=== PATIENT | female | born 1975 | race Caucasian/White ===

== ENCOUNTER → 2017-02-10 | Outpatient (REF) | payer OTHER ==
[~2017-02-10] MED LIST: ACET50TA PO; FLUT22IN INH; MAG-TAB2 PO; NEXI5GRA PO; PERCOCET PO; PRENTAB7 PO; RANI1TAB6 PO; SING10TA32 PO; TOPR25TA PO
[2017-02-10 12:25] LABS: THYROXINE (T4) 6.8 UG/DL (4.5-12.0); URIC ACID 6.4 MG/DL (2.6-6.0)
[2017-02-13 00:06] LABS: Lyme Disease IgG Ab 18 kDa Ban Absent (.); Lyme Disease IgG Ab 23 kDa Ban Absent (.); Lyme Disease IgG Ab 28 kDa Ban Absent (.); Lyme Disease IgG Ab 30 kDa Ban Absent (.); Lyme Disease IgG Ab 39 kDa Ban Absent (.); Lyme Disease IgG Ab 41 kDa Ban Absent (.); Lyme Disease IgG Ab 45 kDa Ban Absent (.); Lyme Disease IgG Ab 58 kDa Ban Absent (.); Lyme Disease IgG Ab 66 kDa Ban Absent (.); Lyme Disease IgG Ab 93 kDa Ban Absent (.); Lyme Disease IgG West Blot Int Negative (.); Lyme Disease IgG/IgM Antibodie <0.91 ISR (0.00-0.90); Lyme Disease IgM Ab 23 kDa Ban Present (.); Lyme Disease IgM Ab 39 kDa Ban Absent (.); Lyme Disease IgM Ab 41 kDa Ban Absent (.); Lyme Disease IgM Ab Quantitati 1.15 index (0.00-0.79); Lyme Disease IgM West Blot Int Negative (.)
== END ==
LOC: M SFHCCLAY 08:26
PROVIDERS: ATTEND Family Medicine
DX: M54.5 Low back pain (principal); M25.50 Pain in unspecified joint; R53.82 Chronic fatigue, unspecified; M25.78 Osteophyte, vertebrae

== ENCOUNTER → 2017-02-10 | Outpatient (CLI) | payer OTHER ==
--- NOTE | 2017-02-11 00:49 | REP ---
Clinical: Lower back pain. Technique: AP, lateral, bilateral oblique views of the lumbosacral spine. Findings: Normal alignment and lordosis maintained. No acute fracture / compression injury or subluxation. Moderate endplate sclerosis with disc space narrowing and hypertrophic facet changes at the L5-S1 level are appreciated with possible chronic spondylolysis. No evidence for spondylolisthesis. Remainder examination is relatively normal for age. Impression: Moderate degenerative disc osteophyte complex at the L5-S1 level as described above. Signed by Jayce Seymour MD 02/11/2017 12:40 A
== END ==
LOC: M CLY 08:36
PROVIDERS: ATTEND Family Medicine
DX: M54.5 Low back pain (principal)

== ENCOUNTER → 2017-06-27 | Outpatient (CLI) | payer OTHER | LOC: M PAIN 10:30 | PROVIDERS: ATTEND Anesthesiology | DX: M54.5 Low back pain (principal); G89.29 Other chronic pain; M79.1 Myalgia; M47.816 Spondylosis without myelopathy or radiculopathy, lumbar region; M47.817 Spondylosis without myelopathy or radiculopathy, lumbosacral region; J45.909 Unspecified asthma, uncomplicated; Z79.899 Other long term (current) drug therapy ==

== ENCOUNTER → 2018-03-02 | Outpatient (CLI) | payer OTHER | LOC: M RAD 15:11 | DX: K42.9 Umbilical hernia without obstruction or gangrene (principal) | CPT/HCPCS: 74176 ==

== ENCOUNTER 2018-08-20 15:04 | Emergency (ER) | payer OTHER ==
[~2018-08-20 15:04] MED LIST changes: -ACET50TA PO; +MAPA500T2 PO; -TOPR25TA PO; +TOPR25TA13 PO
[2018-08-20 15:54] LABS: BASO % 0.3 % (0.0-1.0); EOS % 0.2 % (0.0-3.0); HEMATOCRIT 41.1 % (36.0-47.0); HEMOGLOBIN 13.9 g/dl (12.0-15.5); LYMPH # 0.5 10^3/uL (1.5-4.5); LYMPH % 8.2 % (24.0-44.0); MEAN CORPUSCULAR HEMOGLOBIN 29.2 pg (27.0-33.0); MEAN CORPUSCULAR HGB CONC 33.8 g/dl (32.0-36.5); MEAN CORPUSCULAR VOLUME 86.3 fl (80.0-96.0); MONO # 0.3 10^3/uL (0.0-0.8); MONO % 4.6 % (0.0-5.0); NEUTROPHILS # 5.5 10^3/uL (1.8-7.7); NEUTROPHILS % 86.2 % (36.0-66.0); PLATELET COUNT, AUTOMATED 155 10^3/uL (150-450); RED BLOOD COUNT 4.76 10^6/uL (4.00-5.40); WHITE BLOOD COUNT 6.3 10^3/uL (4.0-10.0)
--- NOTE | 2018-08-20 15:56 | REP ---
Portable chest x-ray: Single view. History: Chest pain. Comparison study: June 11, 2016. Findings: EKG monitoring electrodes overlie the chest. Lungs are well inflated and clear. Pleural angles are sharp. Heart size is normal. Pulmonary vasculature is not increased. No significant bony abnormality is seen. Impression: Negative portable chest x-ray. Electronically Signed by Jai Mora MD 08/20/2018 03:48 P
[2018-08-20] MEDS ORDERED: NS 1,000 ML IV ONE ×2 (16:15→18:00)
[2018-08-20] MEDS ORDERED: ACETAMINOPHEN TAB 650MG DOSE (2X325MG) PO ONE ×2 (16:15→20:15)
[2018-08-20 16:22] LABS: BLOOD UREA NITROGEN 12 MG/DL (7-18); CALCIUM LEVEL 8.8 MG/DL (8.5-10.1); CARBON DIOXIDE LEVEL 24 MEQ/L (21-32); CHLORIDE LEVEL 104 MEQ/L (98-107); CK-MB VALUE MASS < 1.0 NG/ML (<3.6); CPK CREATINE PHOSPHOKINASE 89 U/L (26-192); CREATININE FOR GFR 1.07 MG/DL (0.55-1.30); GLOMERULAR FILTRATION RATE > 60.0 (>58); GLUCOSE, FASTING 102 MG/DL (70-100); MB/CK RELATIVE INDEX 1.12 (< OR =4); POTASSIUM SERUM 3.8 MEQ/L (3.5-5.1); SODIUM LEVEL 137 MEQ/L (136-145); TROPONIN I < 0.02 NG/ML (< 0.10)
[2018-08-20 16:25] LABS: INR 0.98; PROTHROMBIN TIME 13.1 SECONDS (12.1-14.4)
[2018-08-20 16:26] LABS: PARTIAL THROMBOPLASTIN TIME 24.5 SECONDS (25.4-37.6)
[2018-08-20 16:44] LABS: ALBUMIN 4.1 GM/DL (3.2-5.2); ALT/SGPT 45 U/L (12-78); BILIRUBIN,DIRECT 0.2 MG/DL (0.0-0.2); BILIRUBIN,TOTAL 0.5 MG/DL (0.2-1.0); FREE T4 0.97 NG/DL (0.76-1.46); LIPASE 77 U/L (73-393); MAGNESIUM LEVEL 1.5 MG/DL (1.8-2.4); PHOSPHORUS LEVEL 1.2 MG/DL (2.5-4.9); TOTAL PROTEIN 7.5 GM/DL (6.4-8.2)
[2018-08-20 16:48] LABS: MONO SCRN NEGATIVE (NEGATIVE)
[2018-08-20] MEDS ORDERED: ISOVUE-370 76% 100ML VIAL (Q9967) As Ordered ONE (16:52)
[2018-08-20] MEDS ORDERED: MAGNESIUM OXIDE 400 MG TAB (MAG-OX) PO ONE (17:00)
[2018-08-20] MEDS ORDERED: NEUTRA-PHOS 1.25 GM PACKET PO ONE (17:00)
[2018-08-20] MEDS ORDERED: IBUPROFEN 600 MG TAB PO ONE (18:00)
--- NOTE | 2018-08-20 18:07 | REP ---
CT ANGIO CHEST: HISTORY: Pleuritic chest pain. CONTRAST: Isovue-370 100 mL. There are no filling defects in the main, right and left pulmonary arteries or their branches. The lungs are clear. There is no pleural effusion. The heart is normal in size. There is no mediastinal mass. There is no aneurysm. The patient is status-post cholecystectomy. IMPRESSION:1. There is no pulmonary embolism. 2. The patient is status-post cholecystectomy. Electronically Signed by Donn Red MD 08/20/2018 06:28 P
--- NOTE | 2018-08-20 18:15 | REP ---
CT ABDOMEN AND PELVIS WITH CONTRAST: HISTORY: Fever. CONTRAST: Isovue-370 100 mL. COMPARISON: 03/02/2018. The patient is status-post cholecystectomy. The liver, pancreas, spleen, adrenal glands and kidneys are normal in appearance. There is no mass, adenopathy, or free fluid. A small 1 cm fat containing periumbilical hernia is present. The visualized lungs are clear. The urinary bladder and uterus are normal in appearance. Degenerative changes is present in the lumbar spine. There are 4 mm of grade 1 spondylolisthesis of L5 on S1 with associated L5 pars defects. IMPRESSION:The patient is status-post cholecystectomy. Electronically Signed by Donn Red MD 08/20/2018 06:30 P
[2018-08-20] MEDS ORDERED: AUGMENTIN 875 MG TAB PO ONE (18:30)
[2018-08-20] MEDS ORDERED: NS 1,000 ML IV SCH (20:11)
[2018-08-20 21:21] LABS: CK-MB VALUE MASS < 1.0 NG/ML (<3.6); CPK CREATINE PHOSPHOKINASE 77 U/L (26-192); TROPONIN I < 0.02 NG/ML (< 0.10)
[2018-08-20] MEDS ORDERED: AUGM875T28 PO (21:34)
[2018-08-20 21:40] VITALS: BP 90/56
--- NOTE | 2018-08-21 08:40 | ECGEPIP ---
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
== END 2018-08-20 21:53 | disposition home or self-care (01) ==
LOC: M ED 15:04
DX: F50.9 Eating disorder, unspecified (principal); R00.2 Palpitations; H66.92 Otitis media, unspecified, left ear; R00.0 Tachycardia, unspecified; R94.31 Abnormal electrocardiogram [ECG] [EKG]; J45.909 Unspecified asthma, uncomplicated; I47.1 Supraventricular tachycardia; Z79.899 Other long term (current) drug therapy
CPT/HCPCS: 71045; 71275; 74177; 80048; 80076; 81001; 82550; 82553; 83690; 83735; 84100; 84439; 84443; 85025; 85610; 85730; 86308; 87040; 87077; 87186; 87486; 87581; 87633; 87798; 87880; 93005; 93041; 94760; 96360; 96361; 99285; Q9967

== ENCOUNTER → 2018-11-23 | Outpatient (REF) | payer OTHER ==
[~2018-11-23] MED LIST changes: +AUGM875T28 PO; +TOPR25TA PO; -TOPR25TA13 PO
[2018-11-23 16:50] LABS: BASO % 0.7 % (0.0-1.0); EOS # 0.1 10^3/uL (0.0-0.50); EOS % 1.7 % (0.0-3.0); HEMATOCRIT 40.5 % (36.0-47.0); HEMOGLOBIN 13.5 g/dl (12.0-15.5); LYMPH # 2.2 10^3/uL (1.5-4.5); LYMPH % 48.6 % (24.0-44.0); MEAN CORPUSCULAR HGB CONC 33.3 g/dl (32.0-36.5); MEAN CORPUSCULAR VOLUME 87.1 fl (80.0-96.0); MONO # 0.3 10^3/uL (0.0-0.8); MONO % 7.4 % (0.0-5.0); NEUTROPHILS # 1.9 10^3/uL (1.8-7.7); NEUTROPHILS % 41.4 % (36.0-66.0); PLATELET COUNT, AUTOMATED 198 10^3/uL (150-450); RED BLOOD COUNT 4.65 10^6/uL (4.00-5.40); WHITE BLOOD COUNT 4.6 10^3/uL (4.0-10.0)
[2018-11-23 17:12] LABS: ALBUMIN 3.7 GM/DL (3.2-5.2); ALT/SGPT 37 U/L (12-78); BILIRUBIN,TOTAL 0.2 MG/DL (0.2-1.0); BLOOD UREA NITROGEN 9 MG/DL (7-18); C REACTIVE PROTEIN QUANTITATIV 0.37 MG/DL (0.00-0.30); CALCIUM LEVEL 8.9 MG/DL (8.5-10.1); CARBON DIOXIDE LEVEL 26 MEQ/L (21-32); CHLORIDE LEVEL 107 MEQ/L (98-107); GLOMERULAR FILTRATION RATE > 60.0 (>58); GLUCOSE, FASTING 83 MG/DL (70-100); POTASSIUM SERUM 4.4 MEQ/L (3.5-5.1); RHEUMATOID FACTOR QUANT < 10.0 IU/ML (<15.0); SODIUM LEVEL 140 MEQ/L (136-145); TOTAL PROTEIN 7.6 GM/DL (6.4-8.2)
[2018-11-23 18:19] LABS: ERYTHROCYTE SEDIMENTATION RATE 12 mm/hr (0-20)
[2018-11-26 00:06] LABS: ANA (HEP2) Negative (.)
== END ==
LOC: M SFHCCLAY 13:33
PROVIDERS: ATTEND Nurse Practitioner Family
DX: M25.50 Pain in unspecified joint (principal)

== ENCOUNTER 2019-11-06 22:26 | Emergency (ER) | payer OTHER ==
[~2019-11-06] VITALS: Ht 162.6 cm; Wt 90.5 kg
[~2019-11-06 22:26] MED LIST changes: +RANI-397 PO; -RANI1TAB6 PO
[2019-11-06] MEDS ORDERED: NS 1,000 ML IV SCH (22:41)
[2019-11-06] MEDS ORDERED: GI COCKTAIL 50ML BTL(HYOSCYAMINE/MAALOX/LIDOCAINE VISCOUS)(1:3:1) PO ONE (22:45)
[2019-11-06] MEDS ORDERED: ASPIRIN 81 MG CHEW TABLET PO ONE (22:45)
[2019-11-06] MEDS ORDERED: METOPROLOL SUCC (TopROL XL) 50MG **XL** TAB PO ONE (23:00)
[2019-11-06] MEDS ORDERED: ADENOSINE 6MG/2ML INJECTION (J0153) IV STA (23:00)
[2019-11-06 23:10] VITALS: BP 141/82
[2019-11-06 23:11] LABS: BASO % 0.5 % (0.0-1.0); EOS # 0.1 10^3/uL (0.0-0.5); EOS % 1.1 % (0.0-3.0); HEMATOCRIT 38.7 % (36.0-47.0); LYMPH # 1.7 10^3/uL (1.5-5.0); LYMPH % 26.5 % (24.0-44.0); MEAN CORPUSCULAR HEMOGLOBIN 28.8 pg (27.0-33.0); MEAN CORPUSCULAR HGB CONC 33.6 g/dl (32.0-36.5); MEAN CORPUSCULAR VOLUME 85.8 fl (80.0-96.0); MONO # 0.4 10^3/uL (0.0-0.8); MONO % 6.5 % (0.0-5.0); NEUTROPHILS # 4.2 10^3/uL (1.5-8.5); NEUTROPHILS % 65.1 % (36.0-66.0); PLATELET COUNT, AUTOMATED 175 10^3/uL (150-450); RED BLOOD COUNT 4.51 10^6/uL (4.00-5.40); WHITE BLOOD COUNT 6.5 10^3/uL (4.0-10.0)
[2019-11-06 23:22] LABS: INR 0.96; PROTHROMBIN TIME 12.5 SECONDS (11.8-14.0)
[2019-11-06 23:43] LABS: ALBUMIN 3.7 GM/DL (3.2-5.2); ALT/SGPT 56 U/L (12-78); BILIRUBIN,DIRECT < 0.1 MG/DL (0.0-0.2); BILIRUBIN,TOTAL 0.2 MG/DL (0.2-1.0); BLOOD UREA NITROGEN 14 MG/DL (7-18); CALCIUM LEVEL 8.9 MG/DL (8.5-10.1); CARBON DIOXIDE LEVEL 28 MEQ/L (21-32); CHLORIDE LEVEL 106 MEQ/L (98-107); CPK CREATINE PHOSPHOKINASE 143 U/L (26-192); CREATININE FOR GFR 1.14 MG/DL (0.55-1.30); FREE T4 1.01 NG/DL (0.76-1.46); GLOMERULAR FILTRATION RATE 55.4 (>58); GLUCOSE, FASTING 120 MG/DL (70-100); HCG, SERUM QUALITATIVE NEGATIVE (NEGATIVE); POTASSIUM SERUM 3.9 MEQ/L (3.5-5.1); SODIUM LEVEL 140 MEQ/L (136-145); TOTAL PROTEIN 7.3 GM/DL (6.4-8.2); TROPONIN I < 0.02 NG/ML (< 0.10)
[2019-11-07] MEDS ORDERED: ALPRAZolam 0.25 MG TAB PO ONE (00:30)
[2019-11-07 00:40] VITALS: BP 134/81
[2019-11-07] MEDS ORDERED: METO1TAB87 PO (01:19)
--- NOTE | 2019-11-07 09:59 | REP ---
CHEST, SINGLE VIEW: Single view of the chest is performed and compared to a prior study of 08/20/2018. There is linear discoid atelectasis in the anterior lung base. No infiltrate is seen bilaterally. The heart is normal in size and mediastinal silhouette is unremarkable. IMPRESSION: Bibasilar linear discoid atelectasis. Electronically Signed by Jagjit Aleman MD 11/07/2019 09:50 P
--- NOTE | 2019-11-07 10:17 | ECGEPIP ---
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
[2019-11-08] MEDS ORDERED: LOPR1TAB6 PO (12:00)
== END 2019-11-07 02:08 | disposition home or self-care (01) ==
LOC: M ED 22:26
DX: I47.1 Supraventricular tachycardia (principal); J98.11 Atelectasis; I10 Essential (primary) hypertension; K21.9 Gastro-esophageal reflux disease without esophagitis
CPT/HCPCS: 71045; 80048; 80076; 82550; 82553; 84439; 84703; 85025; 85610; 93005; 93041; 94760; 96374; 99285; J0153

== ENCOUNTER 2019-11-08 09:49 | Emergency (ER) | payer OTHER ==
[~2019-11-08] VITALS: Ht 162.6 cm; Wt 90.5 kg
[~2019-11-08 09:49] MED LIST changes: +METO1TAB87 PO
[2019-11-08 10:25] LABS: BASO % 0.8 % (0.0-1.0); EOS # 0.1 10^3/uL (0.0-0.5); EOS % 0.9 % (0.0-3.0); HEMATOCRIT 44.1 % (36.0-47.0); HEMOGLOBIN 14.6 g/dl (12.0-15.5); LYMPH # 1.9 10^3/uL (1.5-5.0); LYMPH % 35.6 % (24.0-44.0); MEAN CORPUSCULAR HEMOGLOBIN 28.7 pg (27.0-33.0); MEAN CORPUSCULAR HGB CONC 33.1 g/dl (32.0-36.5); MEAN CORPUSCULAR VOLUME 86.8 fl (80.0-96.0); MONO # 0.4 10^3/uL (0.0-0.8); MONO % 6.6 % (0.0-5.0); NEUTROPHILS % 55.7 % (36.0-66.0); PLATELET COUNT, AUTOMATED 195 10^3/uL (150-450); RED BLOOD COUNT 5.08 10^6/uL (4.00-5.40); WHITE BLOOD COUNT 5.3 10^3/uL (4.0-10.0)
[2019-11-08 11:13] LABS: BLOOD UREA NITROGEN 11 MG/DL (7-18); CALCIUM LEVEL 9.3 MG/DL (8.5-10.1); CARBON DIOXIDE LEVEL 28 MEQ/L (21-32); CHLORIDE LEVEL 105 MEQ/L (98-107); CK-MB VALUE MASS < 1.0 NG/ML (<3.6); CPK CREATINE PHOSPHOKINASE 100 U/L (26-192); CREATININE FOR GFR 0.94 MG/DL (0.55-1.30); GLOMERULAR FILTRATION RATE > 60.0 (>58); GLUCOSE, FASTING 94 MG/DL (70-100); MAGNESIUM LEVEL 2.1 MG/DL (1.8-2.4); PHOSPHORUS LEVEL 2.6 MG/DL (2.5-4.9); SODIUM LEVEL 137 MEQ/L (136-145); TROPONIN I < 0.02 NG/ML (< 0.10)
[2019-11-08] MEDS ORDERED: LOPR1TAB6 PO (12:00)
[2019-11-08 12:30] VITALS: BP 111/60
--- NOTE | 2019-11-08 13:33 | REP ---
CHEST: Single view. There is no evidence of acute infiltrate. No pleural effusion is seen. The heart is normal in size. The mediastinal silhouette is unremarkable. The visualized osseous structures are intact. IMPRESSION: No acute pulmonary disease. Electronically Signed by Jagjit Aleman MD 11/09/2019 10:05 A
--- NOTE | 2019-11-08 22:14 | ECGEPIP ---
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
== END 2019-11-08 12:28 | disposition home or self-care (01) ==
LOC: M ED 09:49
DX: R00.2 Palpitations (principal); R07.9 Chest pain, unspecified; R10.31 Right lower quadrant pain; Z79.899 Other long term (current) drug therapy

== ENCOUNTER 2019-11-09 22:12 | Emergency (ER) | payer OTHER ==
[~2019-11-09] VITALS: Ht 162.6 cm; Wt 90.5 kg
[~2019-11-09 22:12] MED LIST changes: +LOPR1TAB6 PO
[2019-11-09] MEDS ORDERED: NS 1,000 ML IV ONE (22:45)
[2019-11-09] MEDS ORDERED: ASPIRIN 81 MG CHEW TABLET PO ONE (22:45)
[2019-11-09 23:10] LABS: BASO % 0.6 % (0.0-1.0); EOS % 0.6 % (0.0-3.0); HEMOGLOBIN 13.9 g/dl (12.0-15.5); LYMPH # 1.8 10^3/uL (1.5-5.0); LYMPH % 25.7 % (24.0-44.0); MEAN CORPUSCULAR HEMOGLOBIN 28.4 pg (27.0-33.0); MEAN CORPUSCULAR HGB CONC 33.1 g/dl (32.0-36.5); MEAN CORPUSCULAR VOLUME 85.9 fl (80.0-96.0); MONO # 0.5 10^3/uL (0.0-0.8); MONO % 6.6 % (0.0-5.0); NEUTROPHILS # 4.7 10^3/uL (1.5-8.5); NEUTROPHILS % 66.2 % (36.0-66.0); PLATELET COUNT, AUTOMATED 185 10^3/uL (150-450); RED BLOOD COUNT 4.89 10^6/uL (4.00-5.40)
[2019-11-09 23:45] LABS: BLOOD UREA NITROGEN 13 MG/DL (7-18); CALCIUM LEVEL 10.1 MG/DL (8.5-10.1); CARBON DIOXIDE LEVEL 28 MEQ/L (21-32); CHLORIDE LEVEL 104 MEQ/L (98-107); CK-MB VALUE MASS 2.8 NG/ML (<3.6); CPK CREATINE PHOSPHOKINASE 212 U/L (26-192); CREATININE FOR GFR 0.94 MG/DL (0.55-1.30); GLOMERULAR FILTRATION RATE > 60.0 (>58); GLUCOSE, FASTING 90 MG/DL (70-100); MB/CK RELATIVE INDEX 1.32 (< OR =4); SODIUM LEVEL 138 MEQ/L (136-145); TROPONIN I < 0.02 NG/ML (< 0.10)
[2019-11-10] VITALS: BP 118/65
--- NOTE | 2019-11-10 16:41 | ECGEPIP ---
[facility] - ED Test Date: 2019-11-09 Pat Name: BARRERA SCHULTZ Department: Room: - Gender: Female Therapeutic Support Staff: ITZ : 1975 Requested By: PARRIS CHANG Order Number: [id number] Reading MD: Silvana Munoz Measurements Intervals [place] Rate: 66 P: 41 WY: 167 QRS: 31 QRSD: 102 T: -12 QT: 371 QTc: 391 Interpretive Statements SINUS RHYTHM NONSPECIFIC ST & T-WAVE ABNORMALITY DECREASED RATE 11/08/19 Electronically Signed on 11-10-2019 16:41:29 EDT by Silvana Munoz
== END 2019-11-10 01:05 | disposition home or self-care (01) ==
LOC: EDBD 22:12 → M ED 22:12
DX: R00.2 Palpitations (principal); F41.9 Anxiety disorder, unspecified; Z86.79 Personal history of other diseases of the circulatory system; Z79.899 Other long term (current) drug therapy

== ENCOUNTER → 2019-11-11 | Outpatient (CLI) | payer OTHER ==
[~2019-11-11] MED LIST changes: +METO50TA7 PO; +PANT40TA3 PO; +SERT25TA21 PO; +SUCR1TAB56 PO
== END ==
LOC: M LABSMTC 13:00
PROVIDERS: ATTEND Family Medicine
DX: Z11.59 Encounter for screening for other viral diseases (principal); Z20.828 Contact with and (suspected) exposure to other viral communicable diseases

== ENCOUNTER 2019-11-16 17:25 | Emergency (ER) | payer OTHER ==
[~2019-11-16] VITALS: Ht 162.6 cm; Wt 89.0 kg
[~2019-11-16 17:25] MED LIST changes: -METO50TA7 PO; -PANT40TA3 PO; -SERT25TA21 PO; -SUCR1TAB56 PO
[2019-11-16] MEDS ORDERED: SERT25TA21 PO (17:38)
[2019-11-16] MEDS ORDERED: PANT40TA3 PO (17:38)
[2019-11-16] MEDS ORDERED: METO50TA7 PO (17:38)
[2019-11-16] MEDS ORDERED: SUCR1TAB56 PO (17:38)
[2019-11-16 17:56] LABS: BASO % 0.5 % (0.0-1.0); EOS # 0.1 10^3/uL (0.0-0.5); EOS % 0.9 % (0.0-3.0); HEMATOCRIT 42.3 % (36.0-47.0); LYMPH # 1.7 10^3/uL (1.5-5.0); LYMPH % 31.5 % (24.0-44.0); MEAN CORPUSCULAR HEMOGLOBIN 28.7 pg (27.0-33.0); MEAN CORPUSCULAR HGB CONC 33.1 g/dl (32.0-36.5); MEAN CORPUSCULAR VOLUME 86.7 fl (80.0-96.0); MONO # 0.2 10^3/uL (0.0-0.8); MONO % 4.4 % (0.0-5.0); NEUTROPHILS # 3.4 10^3/uL (1.5-8.5); NEUTROPHILS % 62.3 % (36.0-66.0); PLATELET COUNT, AUTOMATED 193 10^3/uL (150-450); RED BLOOD COUNT 4.88 10^6/uL (4.00-5.40); WHITE BLOOD COUNT 5.5 10^3/uL (4.0-10.0)
[2019-11-16 18:24] LABS: BLOOD UREA NITROGEN 13 MG/DL (7-18); CALCIUM LEVEL 9.4 MG/DL (8.5-10.1); CARBON DIOXIDE LEVEL 27 MEQ/L (21-32); CHLORIDE LEVEL 109 MEQ/L (98-107); CPK CREATINE PHOSPHOKINASE 92 U/L (26-192); CREATININE FOR GFR 0.84 MG/DL (0.55-1.30); GLOMERULAR FILTRATION RATE > 60.0 (>58); GLUCOSE, FASTING 120 MG/DL (70-100); MB/CK RELATIVE INDEX 1.09 (< OR =4); NT-PRO BNP 39 PG/ML (<125); POTASSIUM SERUM 3.8 MEQ/L (3.5-5.1); SODIUM LEVEL 138 MEQ/L (136-145); TROPONIN I < 0.02 NG/ML (< 0.10)
[2019-11-16 18:52] VITALS: BP 129/63
[2019-11-16] MEDS ORDERED: METOPROLOL TART 50 MG TAB PO ONE (19:00)
[2019-11-16] MEDS ORDERED: ISOVUE-370 76% 100ML VIAL As Ordered ONE (21:07)
--- NOTE | 2019-11-16 21:46 | REPVR ---
PROCEDURE INFORMATION: Exam: CT Angiography Chest With Contrast Exam date and time: 11/16/2019 9:16 PM Age: 44 years old Clinical indication: Chest pain; Additional info: Palpitations, neck fullness TECHNIQUE: Imaging protocol: Computed tomographic angiography of the chest with intravenous contrast. 3D rendering: MIP and/or 3D reconstructed images were created by the technologist. Radiation optimization: All CT scans at this facility use at least one of these dose optimization techniques: automated exposure control; mA and/or kV adjustment per patient size (includes targeted exams where dose is matched to clinical indication); or iterative reconstruction. Contrast material: ISO 370; Contrast volume: 100 ml; Contrast route: IV; COMPARISON: CT ANGIO CHEST 08/20/2018 4:52 PM FINDINGS: Pulmonary arteries: No pulmonary emboli. Aorta: Unremarkable. No aortic aneurysm. No aortic dissection. Lungs: No focal lung consolidation. Pleural space: No pleural effusion. Heart: No cardiomegaly or pericardial effusion. Lymph nodes: No mediastinal or hilar lymphadenopathy. Gallbladder and bile ducts: There has been a cholecystectomy without further significant findings in the upper abdomen. Bones/joints: No significant skeletal findings. Soft tissues: Unremarkable. IMPRESSION: No evidence of pulmonary emboli or pneumonia. Electronically signed by: Sarah Bernal On 11/16/2019 21:45:55 PM
--- NOTE | 2019-11-16 21:59 | REPVR ---
PROCEDURE INFORMATION: Exam: CT Neck With Contrast Exam date and time: 11/16/2019 9:16 PM Age: 44 years old Clinical indication: Neck pain; Additional info: Palpitations, neck fullness TECHNIQUE: Imaging protocol: Computed tomography images of the neck with intravenous contrast. Radiation optimization: All CT scans at this facility use at least one of these dose optimization techniques: automated exposure control; mA and/or kV adjustment per patient size (includes targeted exams where dose is matched to clinical indication); or iterative reconstruction. Contrast material: ISO 370; Contrast volume: 100 ml; Contrast route: IV; COMPARISON: No relevant prior studies available. FINDINGS: Nasopharynx: Unremarkable. Oropharynx: The right tonsillar pillar is larger than the left narrowing the right lateral aspect of the oropharynx. Tonsillar crypt calcifications are seen bilaterally. Detail is obscured due to artifact from dental amalgam. There is no obvious inflammation. Hypopharynx: Unremarkable. Larynx: Unremarkable. Normal epiglottis. Retropharyngeal space: Unremarkable. Submandibular/Parotid glands: Normal. Glands are normal in size. Thyroid: No enlarged or calcified nodules-several small low dense areas. Lymph nodes: No lymphadenopathy. Trachea: Visualized trachea is unremarkable. Lungs: Unremarkable as visualized. Bones/joints: Unremarkable. No acute fracture. Soft tissues: Unremarkable. No significant soft tissue swelling. Other findings: No significant skeletal findings. IMPRESSION: The right tonsil appears enlarged in comparison the left without obvious adjacent inflammation however detail is somewhat obscured due to dental amalgam. Consider direct visualization. Electronically signed by: Sarah Bernal On 11/16/2019 21:58:28 PM
[2019-11-16 22:19] VITALS: BP 110/64
--- NOTE | 2019-11-16 23:00 | REP ---
CHEST, SINGLE VIEW: There is no evidence of acute infiltrate. No pleural effusion is seen. The heart is normal in size. The mediastinal silhouette is unremarkable. The visualized osseous structures are intact. IMPRESSION: No acute pulmonary disease. Electronically Signed by Jagjit Aleman MD 11/17/2019 10:52 A
--- NOTE | 2019-11-17 08:59 | ECGEPIP ---
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
== END 2019-11-16 22:34 | disposition home or self-care (01) ==
LOC: M ED 17:25 → EDBD 17:25 → M ED 22:34
DX: I47.9 Paroxysmal tachycardia, unspecified (principal); R00.2 Palpitations; F41.9 Anxiety disorder, unspecified; Z79.899 Other long term (current) drug therapy
CPT/HCPCS: 36415; 70491; 71045; 71275; 80048; 82550; 82553; 83880; 85025; 93005; 93041; 94760; 99285; Q9967

== ENCOUNTER 2019-11-20 10:19 | Emergency (ER) | payer OTHER ==
[~2019-11-20] VITALS: Ht 162.6 cm; Wt 86.8 kg
[~2019-11-20 10:19] MED LIST changes: +METO50TA7 PO; +PANT40TA3 PO; +SERT25TA21 PO; +SUCR1TAB56 PO
[2019-11-20] MEDS ORDERED: TIZA2TA PO (10:47)
[2019-11-20] MEDS ORDERED: LORA0.5T5 PO (10:47)
[2019-11-20] MEDS ORDERED: METOPROLOL 5 MG/5 ML VIAL IV STA (10:53)
[2019-11-20] MEDS ORDERED: METOPROLOL TART 50 MG TAB PO ONE (11:30)
[2019-11-20 11:31] VITALS: BP 119/64
[2019-11-20 11:42] LABS: BASO % 0.9 % (0.0-1.0); EOS % 0.7 % (0.0-3.0); HEMATOCRIT 41.7 % (36.0-47.0); LYMPH # 1.9 10^3/uL (1.5-5.0); MEAN CORPUSCULAR HGB CONC 33.6 g/dl (32.0-36.5); MEAN CORPUSCULAR VOLUME 86.5 fl (80.0-96.0); MONO # 0.3 10^3/uL (0.0-0.8); MONO % 6.9 % (0.0-5.0); NEUTROPHILS # 2.2 10^3/uL (1.5-8.5); NEUTROPHILS % 49.3 % (36.0-66.0); PLATELET COUNT, AUTOMATED 211 10^3/uL (150-450); RED BLOOD COUNT 4.82 10^6/uL (4.00-5.40); WHITE BLOOD COUNT 4.5 10^3/uL (4.0-10.0)
--- NOTE | 2019-11-20 11:53 | REP ---
CHEST PORTABLE: REASON: Chest pain. FINDINGS: The technique utilized in obtaining the radiograph has magnified the cardiac silhouette and accentuated the interstitial markings. The superior mediastinal structures are midline. The cardiac silhouette is unremarkable in size, shape, and position. The diaphragmatic surfaces of the lungs are regular, and the costophrenic angles are clear. The pulmonary allen are clear. The imaged osseous structures are intact. IMPRESSION: There is no acute cardiopulmonary disease. Electronically Signed by Abel Lozano DO 11/20/2019 12:59 P
[2019-11-20 12:04] LABS: BLOOD UREA NITROGEN 10 MG/DL (7-18); CALCIUM LEVEL 9.9 MG/DL (8.5-10.1); CARBON DIOXIDE LEVEL 29 MEQ/L (21-32); CHLORIDE LEVEL 111 MEQ/L (98-107); CK-MB VALUE MASS < 1.0 NG/ML (<3.6); CPK CREATINE PHOSPHOKINASE 89 U/L (26-192); CREATININE FOR GFR 0.92 MG/DL (0.55-1.30); GLOMERULAR FILTRATION RATE > 60.0 (>58); GLUCOSE, FASTING 93 MG/DL (70-100); MB/CK RELATIVE INDEX 1.12 (< OR =4); POTASSIUM SERUM 3.8 MEQ/L (3.5-5.1); SODIUM LEVEL 145 MEQ/L (136-145); TROPONIN I < 0.02 NG/ML (< 0.10)
[2019-11-20 12:30] VITALS: BP 106/63
[2019-11-20] MEDS ORDERED: METO50TA7 PO (12:31)
--- NOTE | 2019-11-21 11:16 | ECGEPIP ---
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
--- NOTE | 2019-11-22 16:39 | ECGEPIP ---
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
== END 2019-11-20 12:47 | disposition home or self-care (01) ==
LOC: M ED 10:19 → EDBD 10:19 → M ED 12:47
DX: I47.1 Supraventricular tachycardia (principal); J45.909 Unspecified asthma, uncomplicated; Z79.899 Other long term (current) drug therapy

== ENCOUNTER 2019-11-23 09:26 | Emergency (ER) | payer OTHER ==
[~2019-11-23 09:26] MED LIST changes: -AMOX/K; -AMOX875T; -AMOX875T2 PO; -FAMO40TA3 PO; -FLUC150T; -IBUP-1022; -IBUP200C33 PO; -LORA-674 PO; -MECL-86 PO; -OFLOSO AD; -OMEP40CA97 PO; -PANT40TA29 PO; +PANT40TA3 PO; -holter monitor
[2019-11-23 09:59] LABS: BASO % 0.6 % (0.0-1.0); EOS % 0.8 % (0.0-3.0); HEMATOCRIT 41.4 % (36.0-47.0); HEMOGLOBIN 13.8 g/dl (12.0-15.5); LYMPH # 1.4 10^3/uL (1.5-5.0); LYMPH % 28.7 % (24.0-44.0); MEAN CORPUSCULAR HEMOGLOBIN 28.8 pg (27.0-33.0); MEAN CORPUSCULAR HGB CONC 33.3 g/dl (32.0-36.5); MEAN CORPUSCULAR VOLUME 86.4 fl (80.0-96.0); MONO # 0.2 10^3/uL (0.0-0.8); MONO % 4.7 % (0.0-5.0); NEUTROPHILS # 3.2 10^3/uL (1.5-8.5); NEUTROPHILS % 64.8 % (36.0-66.0); PLATELET COUNT, AUTOMATED 200 10^3/uL (150-450); RED BLOOD COUNT 4.79 10^6/uL (4.00-5.40); WHITE BLOOD COUNT 4.9 10^3/uL (4.0-10.0)
[2019-11-23] MEDS ORDERED: NS 500 ML IV ONE (10:00)
--- NOTE | 2019-11-23 10:27 | REP ---
Head CT without contrast: History: Dizziness. Comparison study: No comparison head CT study. CT findings: Bone window settings demonstrate an intact bony calvarium. There is no evidence of skull fracture or incidental bony calvarial lesion. The visualized paranasal sinuses appear clear. No intraorbital abnormality is seen. On soft tissue window setting images; the lateral, third, and fourth ventricles are normal in size and position. Aleman-white differentiation pattern is normal above and below the tentorium. There are is no evidence of intracranial hemorrhage. No mass, edema, infarction, or midline shift is seen. No extra-axial fluid collection is appreciated. Impression: Negative noncontrast head CT. Electronically Signed by Jai Mora MD 11/23/2019 10:18 A
[2019-11-23 10:29] LABS: BLOOD UREA NITROGEN 10 MG/DL (7-18); CALCIUM LEVEL 9.2 MG/DL (8.5-10.1); CARBON DIOXIDE LEVEL 28 MEQ/L (21-32); CHLORIDE LEVEL 105 MEQ/L (98-107); CK-MB VALUE MASS 3.3 NG/ML (<3.6); CPK CREATINE PHOSPHOKINASE 92 U/L (26-192); CREATININE FOR GFR 0.88 MG/DL (0.55-1.30); GLOMERULAR FILTRATION RATE > 60.0 (>58); GLUCOSE, FASTING 96 MG/DL (70-100); MAGNESIUM LEVEL 2.1 MG/DL (1.8-2.4); MB/CK RELATIVE INDEX 3.59 (< OR =4); SODIUM LEVEL 139 MEQ/L (136-145); TROPONIN I 0.72 NG/ML (< 0.10)
--- NOTE | 2019-11-23 10:38 | REP ---
CHEST, SINGLE VIEW: There is no evidence of acute infiltrate. No pleural effusion is seen. The heart is normal in size. The mediastinal silhouette is unremarkable. The visualized osseous structures are intact. IMPRESSION: No acute pulmonary disease. Electronically Signed by Jagjit Aleman MD 11/23/2019 10:44 A
--- NOTE | 2019-11-23 12:49 | REP ---
CT CHEST WITHOUT IV CONTRAST: CT chest performed without IV contrast. Sagittal and coronal reconstruction images are performed. COMPARISON: 11/16/2019. Linear fibrotic scarring is seen in the left lower lobe. There is no acute infiltrate or pulmonary edema. There is no evidence of axillary or mediastinal adenopathy. The heart is normal in size. There is no pleural or pericardial effusion. Thoracic aorta is normal in caliber with no aneurysm. The visualized upper abdominal structures demonstrate evidence of prior cholecystectomy. The visualized osseous structures are intact. IMPRESSION: Essentially negative noncontrast CT of the chest. Mild scarring left lower lobe. Electronically Signed by Jagjit Aleman MD 11/23/2019 01:51 P
[2019-11-23 13:52] LABS: CK-MB VALUE MASS 2.8 NG/ML (<3.6); MB/CK RELATIVE INDEX 3.46 (< OR =4); TROPONIN I 0.64 NG/ML (< 0.10)
[2019-11-23] MEDS ORDERED: holter monitor (14:35)
[2019-11-23 16:01] LABS: CK-MB VALUE MASS 2.5 NG/ML (<3.6); MB/CK RELATIVE INDEX 3.33 (< OR =4); TROPONIN I 0.64 NG/ML (< 0.10)
[2019-11-23 16:28] VITALS: BP 112/62
--- NOTE | 2019-11-24 08:24 | ECGEPIP ---
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
== END 2019-11-23 16:29 | disposition home or self-care (01) ==
LOC: M ED 09:26
DX: R42 Dizziness and giddiness (principal); R20.2 Paresthesia of skin; Z98.890 Other specified postprocedural states; I47.2 Ventricular tachycardia; J45.909 Unspecified asthma, uncomplicated; F41.1 Generalized anxiety disorder; Z79.899 Other long term (current) drug therapy

== ENCOUNTER → 2019-11-23 | Outpatient (CLI) | payer OTHER ==
[~2019-11-23] MED LIST changes: +AMOX/K; +AMOX875T; +AMOX875T2 PO; +FAMO40TA3 PO; +FLUC150T; +IBUP-1022; +IBUP200C33 PO; +LORA-674 PO; +LORA0.5T5 PO; +MECL-86 PO; +OFLOSO AD; +OMEP40CA97 PO; +PANT40TA29 PO; -PANT40TA3 PO; +TIZA2TA PO; +holter monitor
--- NOTE | 2019-11-26 20:11 | HOLTMON ---
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 23 hours and 47 minutes were usable for analysis. Baseline mechanism was SR with normal AV conduction and narrow QRS complex. Minimum HR was 50 bpm, average HR 76 bpm and maximum HR 144 bpm. There were no pauses and no atrial fibrillation. 2 isolated PVC's and 3 isolated PAC's were present. Patient reported 4 episodes of dizziness, palpitations and chest pain. All episodes corresponded to SR without ectopy. Overall normal Holter monitor, no correlation of symptoms with arrhythmias. Electronically Signed on 11-26-2019 20:10:28 EDT by Martha Vargas
== END ==
LOC: M EKG 16:08
PROVIDERS: ATTEND Emergency Medicine
DX: R00.2 Palpitations (principal)

== ENCOUNTER → 2019-12-17 | Outpatient (CLI) | payer OTHER ==
[~2019-12-17] MED LIST changes: +AMOX/K; +AMOX875T2 PO; +E-Z-GAS II EFFERVESCENT PACKET (SODIUM BICARB./CITRIC ACID/SIMETHICONE) As Ordered ONE; +E-Z-HD 98% w/w 340GM SUSP BTL As Ordered ONE; +E-Z-PAQUE 96% w/w SUSP 176GM BTL As Ordered ONE; +MECL-86 PO; +OFLOSO AD; +holter monitor
--- NOTE | 2019-12-20 13:38 | REP ---
Upper GI air contrast The procedure was performed under the direct supervision of Dr. Aleman. The images were reviewed with Dr. Aleman The clinical quality assurance specialist film shows no organomegaly or pathological masses. The intestinal gas pattern is non-specific. There are surgical clips noted in the right upper quadrant as well as a single surgical clip in the right mid abdomen. Liquid barium and gas producing crystals were given in the erect position as well as liquid barium in the prone oblique position in order to perform a double contrast upper GI examination. The oral and pharyngeal stages of deglutition are unremarkable. Esophageal transport is prompt and efficient and there is no esophagitis, stricture, mucosal ring or hiatal hernia. Gastroesophageal reflux is not demonstrated on this examination. The stomach escobedo are normally outlined . The rugal folds are smooth and regular. There is no gastritis neoplasm or ulcer disease. The duodenal escobedo are normally outlined . The mucosal folds are smooth and regular. There is no duodenitis pancreatitis peptic ulcer disease or neoplasm. The visualized portion of the proximal small bowel appears normal in course and caliber. Impression: Essentially unremarkable double contrast upper GI examination. 1.6 minutes of fluoro time was utilized for this procedure. Electronically Signed by ELICIA Koch 12/17/2019 03:26 P Electronically Signed by Jagjit Aleman MD 12/20/2019 01:30 P
== END ==
LOC: M RAD 08:10
PROVIDERS: ATTEND Nurse Practitioner Family
DX: R10.13 Epigastric pain (principal)

== ENCOUNTER 2019-12-18 10:56 | Emergency (ER) | payer OTHER ==
[~2019-12-18] VITALS: Ht 162.6 cm; Wt 86.4 kg
[~2019-12-18 10:56] MED LIST changes: -AMOX/K; -AMOX875T2 PO; -E-Z-GAS II EFFERVESCENT PACKET (SODIUM BICARB./CITRIC ACID/SIMETHICONE) As Ordered ONE; -E-Z-HD 98% w/w 340GM SUSP BTL As Ordered ONE; -E-Z-PAQUE 96% w/w SUSP 176GM BTL As Ordered ONE; -MECL-86 PO; -OFLOSO AD; +PANT40TA29 PO; -PANT40TA3 PO
[2019-12-18] MEDS ORDERED: AMOX/K (11:13)
[2019-12-18] MEDS ORDERED: OFLOSO AD (11:13)
[2019-12-18] MEDS ORDERED: MECL-86 PO (11:13)
[2019-12-18] MEDS ORDERED: ISOVUE-370 76% 100ML VIAL As Ordered ONE (11:29)
[2019-12-18 11:54] LABS: BASO % 0.5 % (0.0-1.0); EOS % 0.5 % (0.0-3.0); HEMATOCRIT 39.5 % (36.0-47.0); HEMOGLOBIN 13.1 g/dl (12.0-15.5); LYMPH % 24.2 % (24.0-44.0); MEAN CORPUSCULAR HEMOGLOBIN 29.1 pg (27.0-33.0); MEAN CORPUSCULAR HGB CONC 33.2 g/dl (32.0-36.5); MEAN CORPUSCULAR VOLUME 87.8 fl (80.0-96.0); MONO # 0.2 10^3/uL (0.0-0.8); MONO % 4.9 % (0.0-5.0); NEUTROPHILS # 2.9 10^3/uL (1.5-8.5); NEUTROPHILS % 69.7 % (36.0-66.0); PLATELET COUNT, AUTOMATED 183 10^3/uL (150-450); WHITE BLOOD COUNT 4.1 10^3/uL (4.0-10.0)
[2019-12-18 12:06] LABS: INR 0.97; PARTIAL THROMBOPLASTIN TIME 25.8 SECONDS (25.0-38.4); PROTHROMBIN TIME 12.6 SECONDS (11.8-14.0)
[2019-12-18 12:21] LABS: CK-MB VALUE MASS < 1.0 NG/ML (<3.6); CPK CREATINE PHOSPHOKINASE 103 U/L (26-192); MB/CK RELATIVE INDEX 0.97 (< OR =4); TROPONIN I < 0.02 NG/ML (< 0.10)
[2019-12-18] MEDS ORDERED: LORazepam 1 MG TAB PO STA (13:53)
--- NOTE | 2019-12-18 15:10 | REPVR ---
PROCEDURE INFORMATION: Exam: MR Head Without Contrast Exam date and time: 12/18/2019 2:50 PM Age: 44 years old Clinical indication: Numbness / parasthesia; Patient HX: Left sided facial numbness and parestheias; Additional info: Left sided paresthesias TECHNIQUE: Imaging protocol: MR of the head without contrast. COMPARISON: CT Head without contrast 12/18/2019 11:42 AM FINDINGS: Brain: There is a tiny focus of high signal within the anterior right medulla/cervical cord on the diffusion sequence. This may be artifact. Alternatively, this could represent a tiny infarct associated with the vertebrobasilar system. Ventricles: Normal. No ventriculomegaly. Bones/joints: Unremarkable. Sinuses: Normal as visualized. No acute sinusitis. Mastoid air cells: Normal as visualized. No mastoid effusion. Orbits: Unremarkable. Soft tissues: Unremarkable. IMPRESSION: There is a tiny focus of high signal within the anterior right medulla/cervical cord on the diffusion sequence. This may be artifact. Alternatively, this could represent a tiny infarct associated with the vertebrobasilar system. If this possibility corresponds with patient's clinical symptoms, follow-up CT or MR angiography would be recommended. Electronically signed by: Joni Puri On 12/18/2019 15:10:24 PM
[2019-12-18] MEDS ORDERED: ACETAMINOPHEN TAB 650MG DOSE (2X325MG) PO ONE (16:00)
[2019-12-18] MEDS ORDERED: PROHANCE 279.3MG/ML 5ML VIAL As Ordered ONE (16:47)
[2019-12-18] MEDS ORDERED: PROHANCE 279.3MG/ML 15ML VIAL As Ordered ONE (16:47)
--- NOTE | 2019-12-18 17:33 | REPVR ---
PROCEDURE INFORMATION: Exam: MR Cervical Spine Without and With Contrast Exam date and time: 12/18/2019 4:46 PM Age: 44 years old Clinical indication: Disturbance of skin sensation; Paresthesia of skin; Patient HX: Left sided paresthesia; Additional info: Per Dr wan TECHNIQUE: Imaging protocol: Multiplanar magnetic resonance images of the cervical spine without and with intravenous contrast. Contrast material: PROHANCE; Contrast volume: 17 ml; Contrast route: IV; COMPARISON: CT ANGIO NECK 12/18/2019 11:42 AM FINDINGS: Vertebrae: There is no fracture. Vertebral alignment is normal. Stir images demonstrate no evidence of marrow edema or marrow infiltrating lesion. There is no bone marrow enhancement. Spinal cord: The cervical spinal cord and cervical medullary junction are normal. No signal abnormality or abnormal enhancement. No cord compression. C2-C3: No significant disc disease. No significant spinal stenosis. C3-C4: No significant disc disease. No significant spinal stenosis. C4-C5: Mild disc bulge. No central or foraminal stenosis. C5-C6: Minimal spondylosis and mild disc bulge. No central or foraminal stenosis. C6-C7: Hyperintense signal in the posterior annulus indicating an annular fissure. There is a central disc herniation with cephalad extrusion. Anterior to posterior diameter is 3 mm. The disc extrudes the 3 mm self [place]. The thecal sac is mildly indented in the midline. No central or foraminal stenosis. C7-T1: No significant disc disease. No significant spinal stenosis. Vertebral arteries: Expected flow voids in the vertebral arteries. Soft tissues: There is no paraspinous or intraspinal mass, hemorrhage, fluid collection or abnormal enhancement. IMPRESSION: 1. No spinal cord abnormality . 2. C6-C7: Annular fissure and small central disc extrusion. Electronically signed by: Silvano Owen On 12/18/2019 17:33:10 PM
--- NOTE | 2019-12-18 17:46 | REPVR ---
PROCEDURE INFORMATION: Exam: MR Head With Contrast Exam date and time: 12/18/2019 4:46 PM Age: 44 years old Clinical indication: Numbness / parasthesia; Patient HX: Please compare to earlier non contrast brain. Left sided paresthesia. ; Additional info: Per neuro TECHNIQUE: Imaging protocol: MR of the head with intravenous contrast. This is Limited scan consisting of thin slice FLAIR sagittal, DWI, ADC and multiplanar postcontrast T1 weighted images. 3D rendering: MIP and/or 3D reconstructed images were created by the technologist. Contrast material: PROHANCE; Contrast volume: 17 ml; Contrast route: IV; COMPARISON: MRI-Brain without Contrast 12/18/2019 2:30 PM FINDINGS: Brain: There are a few punctate hyperintense foci in the subcortical white matter on the thin slice FLAIR sagittal images. No hyperintense foci in the periventricular white matter. No definite abnormality on DWI. The punctate right anterior medullary hyperintense focus on the prior scan on DWI is likely artifactual. There are no abnormalities on corresponding ADC, FLAIR or postcontrast images. There is no abnormal enhancement. No evidence of infarct. No mass. No hemorrhage or extra-axial collection. Ventricles: There is no hydrocephalus. Bones/joints: Unremarkable. Sinuses: Normal as visualized. No acute sinusitis. Mastoid air cells: Normal as visualized. No mastoid effusion. Orbits: Unremarkable. Soft tissues: Unremarkable. IMPRESSION: 1. There are a few punctate hyperintense foci in the subcortical white matter. These could represent minimal foci of microvascular or demyelinating disease. Most often such minimal foci are idiopathic with no clinical correlate. 2. No enhancing lesion. Electronically signed by: Sivlano Owen On 12/18/2019 17:46:21 PM
[2019-12-18] MEDS ORDERED: AMOX875T2 PO (17:54)
[2019-12-18 19:00] VITALS: BP 123/60
--- NOTE | 2019-12-18 19:19 | ECGEPIP ---
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
--- NOTE | 2019-12-19 06:44 | ED PDOC ---
Post-Departure Follow-Up esteban phelan and dr fofana faxed formal report of MRI brain and c spine w and wout contrast for fu Eusebia Giles MD Dec 19, 2019 06:44
--- NOTE | 2019-12-20 10:30 | REP ---
CHEST PORTABLE: REASON FOR EXAM: Stoke-like symptoms. COMPARISON: Multiple, the latest 11/23/2019. FINDINGS: The technique utilized in obtaining the radiograph has magnified the cardiac silhouette and accentuated the interstitial markings. The superior mediastinal structures are midline. The cardiac silhouette is unremarkable in size, shape, and position. The diaphragmatic surfaces of the lungs are regular, and the costophrenic angles are clear. The pulmonary allen are clear. The imaged osseous structures are intact. IMPRESSION: There is no acute cardiopulmonary disease. Preliminary report given by Dr. Seymour. Electronically Signed by Abel Lozano DO 12/20/2019 10:58 A
--- NOTE | 2019-12-20 23:15 | REP ---
CT BRAIN, CTA INTRA- AND EXTRACRANIAL CIRCULATION, 12/18/2019: INDICATION: Altered mental status. Headache. TECHNIQUE: Unenhanced axial CT images of the brain were obtained from skull base to vertex. In addition, CT angiography was performed following IV iodinated contrast with coronal and sagittal reconstructions performed. COMPARISONS: CT brain is compared to 11/23/2019. FINDINGS: CT brain: There is no acute intracranial hemorrhage, acute cortical infarction, hydrocephalus, intracranial mass effect, or additional acute abnormalities. The paranasal sinuses and mastoid air cells are essentially clear. Intracranial CTA: There is no intracranial aneurysm, significantly vessel stenosis, AVN, or additional acute intracranial vascular abnormalities. Although not tailored for this evaluation, no intracranial venous/dural venous sinuses abnormalities are detected. Extracranial CTA: There is no hemodynamically significant extracranial ICA stenosis by NASCET criteria. The great vessels originate in expected anatomic fashion from the aortic arch. No radiopaque atherosclerotic disease is present. There is no evidence of vessel dissection. IMPRESSION: Unremarkable head CT. Unremarkable intra- and extracranial CTAs. Electronically Signed by Desean Poole DO 12/21/2019 03:09 P
== END 2019-12-18 19:13 | disposition home or self-care (01) ==
LOC: M ED 10:56
DX: G43.109 Migraine with aura, not intractable, without status migrainosus (principal); Z86.79 Personal history of other diseases of the circulatory system; M50.80 Other cervical disc disorders, unspecified cervical region; M50.20 Other cervical disc displacement, unspecified cervical region; G95.9 Disease of spinal cord, unspecified; Z79.899 Other long term (current) drug therapy
CPT/HCPCS: 70450; 70496; 70498; 70551; 70552; 71045; 72156; 80047; 82550; 82553; 85025; 85610; 85730; 86850; 86900; 86901; 93005; 93041; 94760; 99285; A9576; Q9967

== ENCOUNTER → 2019-12-20 | Outpatient (REF) | payer OTHER ==
[~2019-12-20] MED LIST changes: +AMOX/K; +AMOX875T; +AMOX875T2 PO; +FLUC150T; +IBUP-1022; +MECL-86 PO; +OFLOSO AD; +OMEP40CA97 PO; -PANT40TA29 PO; +PANT40TA3 PO
[2019-12-22 18:07] LABS: IgG P18 AB Absent (.); IgG P23 AB Absent (.); IgG P28 AB Absent (.); IgG P30 AB Absent (.); IgG P39 AB Absent (.); IgG P41 AB Absent (.); IgG P45 AB Absent (.); IgG P66 AB Absent (.); IgG P93 AB Absent (.); IgM P23 AB Present (.); IgM P39 AB Absent (.); IgM P41 AB Absent (.); LYME IgG WB INTERPRETATION Negative (.); LYME IgM WB INTERPRETATION Negative (.)
== END ==
LOC: M SFHCCLAY 14:29
PROVIDERS: ATTEND Nurse Practitioner Family
DX: G44.029 Chronic cluster headache, not intractable (principal); R19.4 Change in bowel habit

== ENCOUNTER → 2019-12-23 | Outpatient (CLI) | payer OTHER ==
--- NOTE | 2019-12-23 16:57 | REP ---
REASON: Pelvic fullness/pain. Transvesical and transvaginal imaging was obtained. Uterus measures 10.7 x 4 x 5.8 cm. The parenchymal echo pattern is within normal limits. The endometrial echocomplex is smooth and unremarkable appearing measuring 7 mm in thickness. The right ovary measures 3.1 x 1.6 x 1.4 cm and the left ovary measures 3.4 x 1.7 x 1.5 cm. Both ovaries are within normal limits. The left ovarian RI is 0.36. The right ovarian RI is 0.71. Incidental note is made of a nabothian cyst. Urinary bladder measures 12 x 8 x 8 cm. IMPRESSION: Pelvic ultrasonography is within normal limits. Electronically Signed by Abel Lozano DO 12/23/2019 05:08 P
== END ==
LOC: M LRY 09:49
PROVIDERS: ATTEND Nurse Practitioner Family
DX: R19.00 Intra-abdominal and pelvic swelling, mass and lump, unspecified site (principal); N88.8 Other specified noninflammatory disorders of cervix uteri

== ENCOUNTER 2019-12-27 11:37 | Emergency (ER) | payer OTHER ==
[~2019-12-27] VITALS: Ht 162.6 cm; Wt 85.7 kg
[~2019-12-27 11:37] MED LIST changes: -AMOX875T; -FLUC150T; -IBUP-1022; -OMEP40CA97 PO
[2019-12-27] MEDS ORDERED: IBUP-1022 (11:45)
[2019-12-27] MEDS ORDERED: FLUC150T (11:45)
[2019-12-27] MEDS ORDERED: AMOX875T (11:45)
[2019-12-27 12:27] LABS: BASO % 0.7 % (0.0-1.0); EOS % 0.5 % (0.0-3.0); HEMATOCRIT 42.2 % (36.0-47.0); HEMOGLOBIN 14.3 g/dl (12.0-15.5); LYMPH # 1.2 10^3/uL (1.5-5.0); LYMPH % 30.1 % (24.0-44.0); MEAN CORPUSCULAR HEMOGLOBIN 29.7 pg (27.0-33.0); MEAN CORPUSCULAR HGB CONC 33.9 g/dl (32.0-36.5); MEAN CORPUSCULAR VOLUME 87.7 fl (80.0-96.0); MONO # 0.3 10^3/uL (0.0-0.8); MONO % 6.8 % (0.0-5.0); NEUTROPHILS # 2.5 10^3/uL (1.5-8.5); NEUTROPHILS % 61.7 % (36.0-66.0); PLATELET COUNT, AUTOMATED 199 10^3/uL (150-450); RED BLOOD COUNT 4.81 10^6/uL (4.00-5.40); WHITE BLOOD COUNT 4.1 10^3/uL (4.0-10.0)
[2019-12-27 12:58] LABS: HCG, SERUM QUALITATIVE NEGATIVE (NEGATIVE)
[2019-12-27 13:00] LABS: ALBUMIN 4.2 GM/DL (3.2-5.2); ALT/SGPT 42 U/L (12-78); BILIRUBIN,DIRECT < 0.1 MG/DL (0.0-0.2); BILIRUBIN,TOTAL 0.3 MG/DL (0.2-1.0); BLOOD UREA NITROGEN 12 MG/DL (7-18); CARBON DIOXIDE LEVEL 27 MEQ/L (21-32); CHLORIDE LEVEL 104 MEQ/L (98-107); CREATININE FOR GFR 0.84 MG/DL (0.55-1.30); GLOMERULAR FILTRATION RATE > 60.0 (>58); GLUCOSE, FASTING 85 MG/DL (70-100); LIPASE 65 U/L (73-393); POTASSIUM SERUM 4.3 MEQ/L (3.5-5.1); SODIUM LEVEL 138 MEQ/L (136-145); TOTAL PROTEIN 8.2 GM/DL (6.4-8.2)
[2019-12-27 14:41] LABS: CK-MB VALUE MASS < 1.0 NG/ML (<3.6); CPK CREATINE PHOSPHOKINASE 77 U/L (26-192); TROPONIN I < 0.02 NG/ML (< 0.10)
--- NOTE | 2019-12-27 14:44 | REP ---
Chest x-ray: Two views. History: Chest discomfort. Left scapular pain. . Comparison study: December 18, 2019 . Findings: The lungs are well inflated and free of infiltrate. The pleural angles are sharp. The heart size is normal. Pulmonary vasculature is not increased. No significant bony abnormality is seen. Impression: Negative chest x-ray. Electronically Signed by Jai Mora MD 12/27/2019 02:36 P
[2019-12-27] MEDS ORDERED: GI COCKTAIL 50ML BTL(HYOSCYAMINE/MAALOX/LIDOCAINE VISCOUS)(1:3:1) PO ONE (15:00)
[2019-12-27] MEDS ORDERED: OMEP40CA97 PO (15:33)
[2019-12-27 15:47] VITALS: BP 123/69
--- NOTE | 2019-12-27 21:46 | ECGEPIP ---
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
== END 2019-12-27 15:48 | disposition home or self-care (01) ==
LOC: M ED 11:37
DX: R10.13 Epigastric pain (principal); K21.9 Gastro-esophageal reflux disease without esophagitis; J45.909 Unspecified asthma, uncomplicated; F41.9 Anxiety disorder, unspecified; F32.9 Major depressive disorder, single episode, unspecified; Z79.899 Other long term (current) drug therapy

== ENCOUNTER → 2020-01-13 | Outpatient (CLI) | payer OTHER ==
[~2020-01-13] MED LIST changes: +AMOX875T; +FLUC150T; +IBUP-1022; +OMEP40CA97 PO
--- NOTE | 2020-01-13 13:00 | REPMRS ---
Patient History The patient states she had a clinical breast exam in November 2019. No known family history of cancer. Digital Woman Screen Mammo: January 13, 2020 - Exam #: [id number] Bilateral CC and MLO view(s) were taken. Technologist: Lou Mann, Technologist No prior studies available for comparison. FINDINGS: There are scattered fibroglandular densities. The Volpara volumetric breast density category is: B. There is no evidence of dominant mass, architectural distortion, or grouped microcalcification typical of malignancy. 3-D tomosynthesis shows no additional findings. Assessment: BI-RADS/ACR category 1 mammogram. Negative Mammogram. Recommendation Routine screening mammogram of both breasts in 1 year (for women over age 40). This patient's Lifetime Breast Cancer RIsk is estimated at 9.9 %. This mammogram was interpreted with the aid of an FDA-approved computer-aided dectection system. Electronically Signed By: Dani Mora MD 01/13/20 1300
== END ==
LOC: M WHC 11:16
PROVIDERS: ATTEND Nurse Practitioner Family
DX: Z12.31 Encounter for screening mammogram for malignant neoplasm of breast (principal)

== ENCOUNTER → 2020-01-20 | Outpatient (CLI) | payer OTHER ==
[~2020-01-20] MED LIST changes: +PANT40TA29 PO; -PANT40TA3 PO
--- NOTE | 2020-01-23 07:29 | REP ---
MRI LUMBAR SPINE WITHOUT CONTRAST: 01/20/2020. CLINICAL HISTORY: Low back pain. COMPARISON: MRI, 03/24/2017. TECHNIQUE: Axial and sagittal T1/T2-weighted with STIR sagittal. FINDINGS: Normal lordosis maintained. Vertebral body heights and marrow signal remain normal throughout. Disc space heights are maintained, except for slight loss of disc height and disc water signal at the L5-S1 level. Conus terminates at T12-L1. From T11-12 through L3-4, there is no disc bulge, herniation, spinal or foraminal stenosis. At L4-5, minimal flattening ventral thecal sac without disc protrusion, spinal or foraminal stenosis. At L5-S1, there is a broad-based disc bulge with a small central disc protrusion. This abuts the S1 nerve roots but does not displace them. There is no central canal stenosis. Some ligamentum flavum hypertrophy at this level and bilateral L5 spondylolysis with 2-3 mm of spondylolisthesis. IMPRESSION: 1. Broad-based disc bulge with central disc protrusion at L5, S1 abutting but not displacing the S1 nerve roots and causing neither central canal or foraminal encroachment. However, there is bilateral spondylolysis at L5 with 2-3 mm of anterolisthesis of the L5 vertebral body on S1. All of this stable. 2. Minimal flattening ventral thecal sac at L4-5 without spinal or foraminal stenosis. 3. Levels above unremarkable. Electronically Signed by Franc Hubbard MD 01/23/2020 08:41 A
== END ==
LOC: M RAD 15:54
PROVIDERS: ATTEND Nurse Practitioner Family
DX: M51.27 Other intervertebral disc displacement, lumbosacral region (principal); M47.896 Other spondylosis, lumbar region

== ENCOUNTER 2020-01-21 03:32 | Emergency (ER) | payer OTHER ==
[~2020-01-21] VITALS: Ht 162.6 cm; Wt 83.2 kg
[2020-01-21 04:10] LABS: BASO % 0.4 % (0.0-1.0); EOS # 0.1 10^3/uL (0.0-0.5); EOS % 1.3 % (0.0-3.0); HEMATOCRIT 37.6 % (36.0-47.0); HEMOGLOBIN 12.6 g/dl (12.0-15.5); LYMPH # 1.5 10^3/uL (1.5-5.0); LYMPH % 31.2 % (24.0-44.0); MEAN CORPUSCULAR HEMOGLOBIN 29.3 pg (27.0-33.0); MEAN CORPUSCULAR HGB CONC 33.5 g/dl (32.0-36.5); MEAN CORPUSCULAR VOLUME 87.4 fl (80.0-96.0); MONO # 0.3 10^3/uL (0.0-0.8); MONO % 7.3 % (0.0-5.0); NEUTROPHILS # 2.8 10^3/uL (1.5-8.5); NEUTROPHILS % 59.6 % (36.0-66.0); PLATELET COUNT, AUTOMATED 165 10^3/uL (150-450); WHITE BLOOD COUNT 4.7 10^3/uL (4.0-10.0)
[2020-01-21 06:00] VITALS: BP 131/71
[2020-01-21] MEDS ORDERED: METO1TAB87 PO (06:16)
--- NOTE | 2020-01-21 08:40 | REP ---
REASON: Chest pain. FINDINGS: The technique utilized in obtaining the radiograph has magnified the cardiac silhouette and accentuated the interstitial markings. The superior mediastinal structures are midline. The cardiac silhouette is unremarkable in size, shape, and position. The diaphragmatic surfaces of the lungs are regular, and the costophrenic angles are clear. The pulmonary allen are clear. The imaged osseous structures are intact. IMPRESSION: There is no acute cardiopulmonary disease. Electronically Signed by Abel Lozano DO 01/21/2020 09:18 A
--- NOTE | 2020-01-21 10:42 | ECGEPIP ---
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
--- NOTE | 2020-01-21 10:44 | ECGEPIP ---
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
== END 2020-01-21 06:26 | disposition home or self-care (01) ==
LOC: M ED 03:32
DX: I47.1 Supraventricular tachycardia (principal); R07.9 Chest pain, unspecified; F41.9 Anxiety disorder, unspecified; Z79.899 Other long term (current) drug therapy

== ENCOUNTER 2020-02-19 13:00 | Emergency (ER) | payer OTHER ==
[2020-02-19] MEDS ORDERED: ISOVUE-370 76% 100ML VIAL As Ordered ONE (15:25)
--- NOTE | 2020-03-27 15:16 | ECGEPIP ---
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
[2020-04-06 11:48] LABS: APPEARANCE, URINE CLOUDY (CLEAR); BACTERIA, URINE AUTO 1+ (NEGATIVE); BILIRUBIN, URINE AUTO NEGATIVE (NEGATIVE); BLOOD, URINE BLOOD 2+ (NEGATIVE); COLOR, URINE YELLOW (YELLOW); GLUCOSE, URINE (UA) AUTO NEGATIVE (NEGATIVE); KETONE, URINE AUTO NEGATIVE (NEGATIVE); LEUKOCYTE ESTERASE, URINE AUTO 1+ (NEGATIVE); MUCUS, URINE MODERATE (NEGATIVE); NITRITE, URINE AUTO NEGATIVE (NEGATIVE); PROTEIN, URINE AUTO NEGATIVE (NEGATIVE); RBC, URINE AUTO 8 /HPF (0-3); SPECIFIC GRAVITY URINE AUTO 1.024 (1.002-1.035); SQUAMOUS EPITHELIAL CELL UR AU 10 /HPF (0-6); UROBILINOGEN, URINE AUTO 0.2 mg/dL (0.0-2.0); WBC, URINE AUTO 2 /HPF (0-3)
[2020-04-06 17:18] LABS: BASO % 0.5 % (0.0-1.0); HEMATOCRIT 40.1 % (36.0-47.0); HEMOGLOBIN 13.7 g/dl (12.0-15.5); LYMPH # 1.6 10^3/uL (1.5-5.0); LYMPH % 40.4 % (24.0-44.0); MEAN CORPUSCULAR HEMOGLOBIN 29.3 pg (27.0-33.0); MEAN CORPUSCULAR HGB CONC 34.2 g/dl (32.0-36.5); MEAN CORPUSCULAR VOLUME 85.9 fl (80.0-96.0); MONO # 0.2 10^3/uL (0.0-0.8); MONO % 5.7 % (0.0-5.0); NEUTROPHILS # 2.1 10^3/uL (1.5-8.5); NEUTROPHILS % 52.2 % (36.0-66.0); PLATELET COUNT, AUTOMATED 188 10^3/uL (150-450); RED BLOOD COUNT 4.67 10^6/uL (4.00-5.40); WHITE BLOOD COUNT 4.1 10^3/uL (4.0-10.0)
[2020-05-09 18:20] LABS: HCG, SERUM QUALITATIVE NEGATIVE (NEGATIVE)
[2020-05-09 18:47] LABS: ALBUMIN 3.9 GM/DL (3.2-5.2); ALT/SGPT 32 U/L (12-78); BILIRUBIN,DIRECT < 0.1 MG/DL (0.0-0.2); BILIRUBIN,TOTAL 0.3 MG/DL (0.2-1.0); BLOOD UREA NITROGEN 13 MG/DL (7-18); CALCIUM LEVEL 9.7 MG/DL (8.5-10.1); CARBON DIOXIDE LEVEL 29 MEQ/L (21-32); CHLORIDE LEVEL 108 MEQ/L (98-107); CREATININE FOR GFR 0.95 MG/DL (0.55-1.30); FREE T4 0.98 NG/DL (0.76-1.46); GLOMERULAR FILTRATION RATE > 60.0 (>58); GLUCOSE, FASTING 106 MG/DL (70-100); LIPASE 82 U/L (73-393); MAGNESIUM LEVEL 2.2 MG/DL (1.8-2.4); PHOSPHORUS LEVEL 3.1 MG/DL (2.5-4.9); POTASSIUM SERUM 3.8 MEQ/L (3.5-5.1); SODIUM LEVEL 142 MEQ/L (136-145); THYROID STIMULATING HORMONE 0.871 uIU/ML (0.358-3.740); TOTAL PROTEIN 7.6 GM/DL (6.4-8.2); TROPONIN I < 0.02 NG/ML (< 0.10)
== END 2020-02-19 17:30 | disposition home or self-care (01) ==
LOC: M ED 13:00
DX: R13.10 Dysphagia, unspecified (principal); M79.604 Pain in right leg; R00.2 Palpitations; E04.1 Nontoxic single thyroid nodule; M47.817 Spondylosis without myelopathy or radiculopathy, lumbosacral region; K42.9 Umbilical hernia without obstruction or gangrene; Z79.899 Other long term (current) drug therapy
CPT/HCPCS: 36415; 70491; 74177; 80048; 80076; 81001; 83690; 83735; 84100; 84439; 84443; 84703; 85025; 87088; 87186; 93005; 93971; 99284; Q9967

== ENCOUNTER 2020-06-07 15:36 | Emergency (ER) | payer OTHER ==
[~2020-06-07] VITALS: Ht 162.6 cm; Wt 81.0 kg
[2020-06-07] MEDS ORDERED: LORA-674 PO (16:02)
[2020-06-07] MEDS ORDERED: FAMO40TA3 PO (16:02)
[2020-06-07] MEDS ORDERED: IBUP200C33 PO (16:02)
[2020-06-07 16:57] LABS: BASO % 0.6 % (0.0-1.0); EOS # 0.1 10^3/uL (0.0-0.5); EOS % 1.7 % (0.0-3.0); HEMATOCRIT 40.4 % (36.0-47.0); HEMOGLOBIN 13.1 g/dl (12.0-15.5); LYMPH # 1.5 10^3/uL (1.5-5.0); LYMPH % 27.7 % (24.0-44.0); MEAN CORPUSCULAR HEMOGLOBIN 28.1 pg (27.0-33.0); MEAN CORPUSCULAR HGB CONC 32.4 g/dl (32.0-36.5); MEAN CORPUSCULAR VOLUME 86.5 fl (80.0-96.0); MONO # 0.3 10^3/uL (0.0-0.8); MONO % 5.4 % (0.0-5.0); NEUTROPHILS # 3.5 10^3/uL (1.5-8.5); NEUTROPHILS % 64.2 % (36.0-66.0); PLATELET COUNT, AUTOMATED 178 10^3/uL (150-450); RED BLOOD COUNT 4.67 10^6/uL (4.00-5.40); WHITE BLOOD COUNT 5.4 10^3/uL (4.0-10.0)
[2020-06-07 17:07] LABS: INR 0.99; PROTHROMBIN TIME 13.3 SECONDS (12.5-14.3)
[2020-06-07] MEDS ORDERED: ACETAMINOPHEN 325 MG TAB PO ONE (17:15)
--- NOTE | 2020-06-07 17:28 | REP ---
INDICATION: left upper chest pain COMPARISON: 02/14/2020 TECHNIQUE: Portable AP view of the chest FINDINGS: The mediastinum and cardiac silhouette are stable and within normal limits for portable technique. The lung allen are clear without acute consolidation, effusion, or pneumothorax. Skeletal structures are intact. IMPRESSION: No acute cardiopulmonary process appreciated. <Electronically signed by Jayce Seymour > 06/07/20 0058
[2020-06-07 17:37] LABS: ALT/SGPT 27 U/L (12-78); BILIRUBIN,DIRECT < 0.1 MG/DL (0.0-0.2); BILIRUBIN,TOTAL 0.2 MG/DL (0.2-1.0); BLOOD UREA NITROGEN 12 MG/DL (7-18); CALCIUM LEVEL 9.4 MG/DL (8.5-10.1); CARBON DIOXIDE LEVEL 28 MEQ/L (21-32); CHLORIDE LEVEL 103 MEQ/L (98-107); CK-MB VALUE MASS < 1.0 NG/ML (<3.6); CPK CREATINE PHOSPHOKINASE 113 U/L (26-192); CREATININE FOR GFR 0.84 MG/DL (0.55-1.30); GLOMERULAR FILTRATION RATE > 60.0 (>58); GLUCOSE, FASTING 89 MG/DL (70-100); LIPASE 76 U/L (73-393); MB/CK RELATIVE INDEX 0.88 (< OR =4); POTASSIUM SERUM 4.2 MEQ/L (3.5-5.1); SODIUM LEVEL 137 MEQ/L (136-145); TOTAL PROTEIN 7.7 GM/DL (6.4-8.2); TROPONIN I < 0.02 NG/ML (< 0.10)
[2020-06-07 18:25] VITALS: BP 114/65
--- NOTE | 2020-06-08 07:34 | ECGEPIP ---
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
== END 2020-06-07 18:27 | disposition home or self-care (01) ==
LOC: M ED 15:36
DX: R07.89 Other chest pain (principal); R94.31 Abnormal electrocardiogram [ECG] [EKG]; I51.9 Heart disease, unspecified; Z79.899 Other long term (current) drug therapy; Z82.49 Family history of ischemic heart disease and other diseases of the circulatory system; Z98.890 Other specified postprocedural states
CPT/HCPCS: 36415; 71045; 80048; 80076; 82550; 82553; 83690; 85025; 85610; 93005; 93041; 94760; 99285; U0003

== ENCOUNTER 2020-06-10 06:38 | Emergency (ER) | payer OTHER ==
[~2020-06-10] VITALS: Ht 162.6 cm; Wt 77.0 kg
[~2020-06-10 06:38] MED LIST changes: +FAMO40TA3 PO; +IBUP200C33 PO; +LORA-674 PO
[2020-06-10] MEDS ORDERED: NS 1,000 ML IV ONE (07:15)
[2020-06-10] MEDS ORDERED: GI COCKTAIL 50ML BTL(HYOSCYAMINE/MAALOX/LIDOCAINE VISCOUS)(1:3:1) PO ONE (07:15)
[2020-06-10] MEDS ORDERED: ONDANSETRON 4MG/2ML VIAL IV ONE (07:15)
[2020-06-10 07:33] LABS: BASO % 0.6 % (0.0-1.0); EOS # 0.1 10^3/uL (0.0-0.5); EOS % 1.2 % (0.0-3.0); HEMATOCRIT 40.7 % (36.0-47.0); HEMOGLOBIN 13.4 g/dl (12.0-15.5); LYMPH # 1.4 10^3/uL (1.5-5.0); LYMPH % 27.3 % (24.0-44.0); MEAN CORPUSCULAR HGB CONC 32.9 g/dl (32.0-36.5); MEAN CORPUSCULAR VOLUME 85.1 fl (80.0-96.0); MONO # 0.3 10^3/uL (0.0-0.8); NEUTROPHILS # 3.3 10^3/uL (1.5-8.5); NEUTROPHILS % 64.7 % (36.0-66.0); PLATELET COUNT, AUTOMATED 158 10^3/uL (150-450); RED BLOOD COUNT 4.78 10^6/uL (4.00-5.40)
[2020-06-10 07:45] LABS: INR 0.94; PROTHROMBIN TIME 12.8 SECONDS (12.5-14.3)
[2020-06-10 07:46] LABS: PARTIAL THROMBOPLASTIN TIME 27.1 SECONDS (24.2-38.5)
[2020-06-10 08:09] LABS: ERYTHROCYTE SEDIMENTATION RATE 8 mm/hr (0-20); HCG, SERUM QUALITATIVE NEGATIVE (NEGATIVE)
[2020-06-10 08:11] LABS: ALBUMIN 3.8 GM/DL (3.2-5.2); ALT/SGPT 22 U/L (12-78); BILIRUBIN,DIRECT < 0.1 MG/DL (0.0-0.2); BILIRUBIN,TOTAL 0.3 MG/DL (0.2-1.0); BLOOD UREA NITROGEN 13 MG/DL (7-18); CALCIUM LEVEL 9.1 MG/DL (8.5-10.1); CARBON DIOXIDE LEVEL 26 MEQ/L (21-32); CHLORIDE LEVEL 107 MEQ/L (98-107); CK-MB VALUE MASS < 1.0 NG/ML (<3.6); CPK CREATINE PHOSPHOKINASE 85 U/L (26-192); CREATININE FOR GFR 0.82 MG/DL (0.55-1.30); GLOMERULAR FILTRATION RATE > 60.0 (>58); GLUCOSE, FASTING 91 MG/DL (70-100); LIPASE 73 U/L (73-393); MB/CK RELATIVE INDEX 1.18 (< OR =4); POTASSIUM SERUM 3.8 MEQ/L (3.5-5.1); SODIUM LEVEL 138 MEQ/L (136-145); TOTAL PROTEIN 7.4 GM/DL (6.4-8.2); TROPONIN I < 0.02 NG/ML (< 0.10)
--- NOTE | 2020-06-10 08:46 | REP ---
INDICATION: CHEST PAIN COMPARISON: 06/07/2020 TECHNIQUE: PA and lateral. FINDINGS: The mediastinum and cardiac silhouette are normal. No focal consolidation, effusion, or pneumothorax. The skeletal structures are intact and normal. IMPRESSION: No acute cardiopulmonary process. <Electronically signed by Jayce Seymour > 06/10/20 0895
[2020-06-10 11:31] LABS: CK-MB VALUE MASS < 1.0 NG/ML (<3.6); CPK CREATINE PHOSPHOKINASE 79 U/L (26-192); MB/CK RELATIVE INDEX 1.27 (< OR =4); TROPONIN I < 0.02 NG/ML (< 0.10)
[2020-06-10] MEDS ORDERED: KETOROLAC 30 MG/ML 1ML VIAL IV ONE (12:00)
[2020-06-10] MEDS ORDERED: dexameTHASONE 4 MG/ML 1ML VIAL (J1100 PER 1MG) IV ONE (12:00)
[2020-06-10] MEDS ORDERED: diphenhydrAMINE 50MG/ML VIAL (J1200) IV ONE (12:00)
--- NOTE | 2020-06-10 12:25 | REP ---
INDICATION: new onset headache COMPARISON: 12/18/2019 TECHNIQUE: Axial noncontrast images from the skull base to the vertex with coronal reformations. This CT examination was performed using the following dose reduction techniques: Automated exposure control, adjustment of mA and/or kv according to the patient's size, and use of iterative reconstruction technique. FINDINGS: The ventricles, sulci, and cisterns are normal in position and appearance. Aleman-white differentiation is maintained. No acute intracranial hemorrhage, mass/mass effect, pathology or trauma/injury. No evidence for acute infarction. No extra-axial fluid collection. Calvarium is intact. Paranasal sinuses and mastoid air cells are clear. IMPRESSION: Normal noncontrast head CT. No evidence for acute intracranial pathology or trauma/injury. <Electronically signed by Jayce Seymour > 06/10/20 [id number]
[2020-06-10 13:18] VITALS: BP 109/58
--- NOTE | 2020-06-10 13:51 | ECGEPIP ---
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
--- NOTE | 2020-06-10 13:54 | ECGEPIP ---
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
== END 2020-06-10 13:20 | disposition home or self-care (01) ==
LOC: M ED 06:38
DX: R51.9 Headache, unspecified (principal); R07.89 Other chest pain; R06.02 Shortness of breath; N93.9 Abnormal uterine and vaginal bleeding, unspecified; J45.909 Unspecified asthma, uncomplicated; Z98.890 Other specified postprocedural states; Z79.899 Other long term (current) drug therapy
CPT/HCPCS: 36415; 70450; 71046; 80048; 80076; 82550; 82553; 83690; 84439; 84443; 84703; 85025; 85610; 85652; 85730; 86140; 93005; 93041; 96361; 96374; 96375; 99285; J1100; J1200; J1885; J2405

== ENCOUNTER 2020-06-12 17:14 | Emergency (ER) | payer OTHER ==
[~2020-06-12] VITALS: Ht 162.6 cm; Wt 79.6 kg
[2020-06-12] MEDS ORDERED: METO1TAB87 PO (17:26)
[2020-06-12] MEDS ORDERED: ASPIRIN 81 MG CHEW TABLET PO ONE (17:45)
--- NOTE | 2020-06-12 18:20 | REP ---
INDICATION: CHEST PAIN. COMPARISON: 06/10/2020 FINDINGS: The technique utilized in obtaining the radiograph has magnified the cardiac silhouette and accentuated the interstitial markings. The superior mediastinal structures are midline. The cardiac silhouette is unremarkable in size, shape, and position. The diaphragmatic surfaces of the lungs are regular, and the costophrenic angles are clear. The pulmonary allen are clear. The imaged osseous structures are intact. IMPRESSION: There is no acute cardiopulmonary disease. <Electronically signed by Abel Lozano > 06/12/20 2229
[2020-06-12 18:21] LABS: BASO % 0.5 % (0.0-1.0); EOS # 0.1 10^3/uL (0.0-0.5); EOS % 0.8 % (0.0-3.0); HEMATOCRIT 40.6 % (36.0-47.0); HEMOGLOBIN 13.3 g/dl (12.0-15.5); LYMPH # 1.7 10^3/uL (1.5-5.0); LYMPH % 28.2 % (24.0-44.0); MEAN CORPUSCULAR HEMOGLOBIN 28.1 pg (27.0-33.0); MEAN CORPUSCULAR HGB CONC 32.8 g/dl (32.0-36.5); MEAN CORPUSCULAR VOLUME 85.7 fl (80.0-96.0); MONO # 0.3 10^3/uL (0.0-0.8); MONO % 5.5 % (0.0-5.0); NEUTROPHILS % 64.8 % (36.0-66.0); PLATELET COUNT, AUTOMATED 178 10^3/uL (150-450); RED BLOOD COUNT 4.74 10^6/uL (4.00-5.40); WHITE BLOOD COUNT 6.2 10^3/uL (4.0-10.0)
[2020-06-12 18:54] LABS: ALT/SGPT 25 U/L (12-78); BILIRUBIN,DIRECT < 0.1 MG/DL (0.0-0.2); BILIRUBIN,TOTAL 0.3 MG/DL (0.2-1.0); BLOOD UREA NITROGEN 18 MG/DL (7-18); CARBON DIOXIDE LEVEL 27 MEQ/L (21-32); CHLORIDE LEVEL 104 MEQ/L (98-107); CK-MB VALUE MASS < 1.0 NG/ML (<3.6); CPK CREATINE PHOSPHOKINASE 122 U/L (26-192); CREATININE FOR GFR 0.99 MG/DL (0.55-1.30); GLOMERULAR FILTRATION RATE > 60.0 (>58); GLUCOSE, FASTING 88 MG/DL (70-100); LIPASE 93 U/L (73-393); MB/CK RELATIVE INDEX 0.82 (< OR =4); NT-PRO BNP 64 PG/ML (<125); POTASSIUM SERUM 4.3 MEQ/L (3.5-5.1); SODIUM LEVEL 137 MEQ/L (136-145); TOTAL PROTEIN 7.7 GM/DL (6.4-8.2); TROPONIN I < 0.02 NG/ML (< 0.10)
[2020-06-12] MEDS ORDERED: ISOVUE-370 76% 100ML VIAL As Ordered ONE (19:18)
--- NOTE | 2020-06-12 19:25 | ECGEPIP ---
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
--- NOTE | 2020-06-12 20:14 | REPVR ---
PROCEDURE INFORMATION: Exam: CT Angiography Neck With Contrast Exam date and time: 06/12/2020 7:41 PM Age: 44 years old Clinical indication: Other: Left sided neck/chest pain; R/O pe TECHNIQUE: Imaging protocol: Computed tomography angiography of the neck with intravenous contrast. 3D rendering (Not supervised by radiologist): MIP and/or 3D reconstructed images were created by the technologist. Radiation optimization: All CT scans at this facility use at least one of these dose optimization techniques: automated exposure control; mA and/or kV adjustment per patient size (includes targeted exams where dose is matched to clinical indication); or iterative reconstruction. Contrast material: ISOVUE 370; Contrast volume: 100 ml; Contrast route: INTRAVENOUS (IV); COMPARISON: CT ANGIO NECK 12/18/2019 11:42 AM FINDINGS: Right common carotid artery: No stenosis. No dissection or occlusion. Right internal carotid artery: No stenosis of the extracranial segment. No dissection or occlusion. Right external carotid artery: No occlusion or stenosis of the origin. Right vertebral artery: No stenosis. No dissection or occlusion. Left common carotid artery: No stenosis. No dissection or occlusion. Left internal carotid artery: No stenosis of the extracranial segment. No dissection or occlusion. Left external carotid artery: No occlusion or stenosis of the origin. Left vertebral artery: No stenosis. No dissection or occlusion. Thyroid: Multiple small hypothyroid hypodense nodules with the largest measuring 5 mm in the left thyroid Bones/joints: No acute fracture. Soft tissues: Normal. No significant soft tissue swelling. IMPRESSION: No stenosis or occlusion of the neck vessels. COMMENTS: Consistent with the [employer]'s Incidental Findings Committee white paper (J Am Boo Radiol 2015): In patients aged 35 years and older with an incidental thyroid nodule equal to or greater than 1.[address], MRI or extrathyroidal US, further evaluation with dedicated thyroid US is recommended for patients with normal life expectancy and without comorbidities. For smaller nodules without suspicious features, no further evaluation or follow up is recommended. REFERENCES: NASCET CRITERIA. The degree of internal carotid artery stenosis is based on NASCET criteria. Normal is no stenosis. Mild is less than 50% stenosis. Moderate is 50-69% stenosis. Severe is 70% to 99% stenosis. Total occlusion is no detectable patent lumen. Electronically signed by: Charles Ball On 06/12/2020 20:14:07 PM
--- NOTE | 2020-06-12 20:16 | REPVR ---
PROCEDURE INFORMATION: Exam: CT Angiography Chest With Contrast Exam date and time: 06/12/2020 7:41 PM Age: 44 years old Clinical indication: Other: Left sided neck/chest pain; R/O pe TECHNIQUE: Imaging protocol: Computed tomographic angiography of the chest with intravenous contrast. 3D rendering (Not supervised by radiologist): MIP and/or 3D reconstructed images were created by the technologist. Radiation optimization: All CT scans at this facility use at least one of these dose optimization techniques: automated exposure control; mA and/or kV adjustment per patient size (includes targeted exams where dose is matched to clinical indication); or iterative reconstruction. Contrast material: ISOVUE 370; Contrast volume: 100 ml; Contrast route: INTRAVENOUS (IV); COMPARISON: CT ANGIO CHEST 11/16/2019 9:09 PM FINDINGS: Pulmonary arteries: Normal. No pulmonary emboli. Aorta: Unremarkable. No aortic aneurysm. No aortic dissection. Lungs: Unremarkable. No consolidation. No masses. Pleural space: Unremarkable. No pneumothorax. No pleural effusion. Heart: Unremarkable. No cardiomegaly. No pericardial effusion. Lymph nodes: Unremarkable. No enlarged lymph nodes. Gallbladder and bile ducts: Cholecystectomy clips. Bones/joints: Unremarkable. No acute fracture. Soft tissues: Unremarkable. IMPRESSION: No pulmonary embolism. Electronically signed by: Charles Ball On 06/12/2020 20:16:39 PM
[2020-06-12 21:00] VITALS: BP 114/63
== END 2020-06-12 21:11 | disposition home or self-care (01) ==
LOC: M ED 17:14
DX: R07.9 Chest pain, unspecified (principal); M54.2 Cervicalgia; R06.02 Shortness of breath; I51.9 Heart disease, unspecified; J45.909 Unspecified asthma, uncomplicated; F41.9 Anxiety disorder, unspecified; F32.9 Major depressive disorder, single episode, unspecified; Z79.899 Other long term (current) drug therapy; Z98.890 Other specified postprocedural states
CPT/HCPCS: 70498; 71045; 71275; 80048; 80076; 82550; 82553; 83690; 83880; 84443; 85025; 93005; 93041; 94760; 99285; Q9967

== ENCOUNTER → 2020-10-03 | Outpatient (CLI) | payer OTHER ==
--- NOTE | 2020-10-03 11:20 | PFTRPT ---
Height: 64.00 Inches Weight: 179.00 Lbs BSA: 1.87 Diagnosis: R06.00 DATE: 10/03/2020 ORDERING PHYSICIAN: KENNY Phillip Pre and post bronchodilator studies have excellent technical quality. Forced vital capacity is normal. FEV1 is in proportion. Obstructive index is therefore normal. Expiratory limit of the flow-volume loop is normal. No significant bronchodilator response is identified. Total lung capacity is normal. Residual volume is in proportion. Diffusing capacity is normal and remains normal when corrected for alveolar volume. Hemoglobin is acceptable at 13.8. Airway resistance and conductance are normal. IMPRESSION: Normal study. MTDD
== END ==
LOC: M CARPUL 10:31
PROVIDERS: ATTEND Physician Assistant
DX: R06.00 Dyspnea, unspecified (principal)

== ENCOUNTER → 2020-10-17 | Outpatient (CLI) | payer OTHER ==
[~2020-10-17] MED LIST changes: +METHACHOLINE KIT (J7674) INH ONE
--- NOTE | 2020-10-17 10:42 | PFTRPT ---
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 Review Status: Not Reviewed Pre-Bronch Post-Bronch Pred Actual %Pred Actual %Chng SPIROMETRY FVC (L) 3.64 3.70 101 3.73 FEV1 (L) 2.94 3.26 110 3.13 -3 FEV1/FVC (%) 81 88 108 84 -4 FEF 25% (L/sec) 5.36 5.85 109 5.30 -9 FEF 50% (L/sec) 4.09 4.70 114 4.37 -7 FEF 75% (L/sec) 1.58 2.32 146 1.66 -28 FEF 25-75% (L/sec) 2.99 4.19 140 3.67 -12 FEF Max (L/sec) 6.90 5.97 86 5.41 -9 FIVC (L) 3.03 2.98 -1 FIF 50% (L/sec) 3.90 3.94 101 3.68 -6 FIF Max (L/sec) 4.22 3.78 -10 Expiratory Time (sec) 6.39 6.22 -2 Back Extrap Vol (L) 0.10 0.09 -7 Time To FEFmax (sec) 0.117 0.123 5
== END ==
LOC: M CARPUL 09:50
PROVIDERS: ATTEND Physician Assistant
DX: R06.00 Dyspnea, unspecified (principal)
CPT/HCPCS: 94070; 95070; J7674

== ENCOUNTER → 2021-06-14 | Outpatient (CLI) | payer OTHER ==
[~2021-06-14] MED LIST changes: -FLUC150T; +FLUC150T9; -METHACHOLINE KIT (J7674) INH ONE; +OMEP40CA4 PO; -OMEP40CA97 PO
== END ==
LOC: M WHC 10:34
PROVIDERS: ATTEND Advanced Practice Midwife
DX: Z12.31 Encounter for screening mammogram for malignant neoplasm of breast (principal)

== ENCOUNTER 2021-08-21 00:10 | Emergency (ER) | payer OTHER ==
[2021-08-21 00:42] LABS: BASO # 0.1 10^3/uL (0.0-0.2); EOS # 0.1 10^3/uL (0.0-0.5); EOS % 2.8 % (0.0-3.0); HEMATOCRIT 39.4 % (36.0-47.0); HEMOGLOBIN 13.2 g/dl (12.0-15.5); LYMPH # 1.9 10^3/uL (1.5-5.0); MEAN CORPUSCULAR HEMOGLOBIN 28.8 pg (27.0-33.0); MEAN CORPUSCULAR HGB CONC 33.5 g/dl (32.0-36.5); MONO # 0.3 10^3/uL (0.0-0.8); MONO % 6.4 % (2.0-8.0); NEUTROPHILS # 2.6 10^3/uL (1.5-8.5); NEUTROPHILS % 51.6 % (36.0-66.0); PLATELET COUNT, AUTOMATED 190 10^3/uL (150-450); RED BLOOD COUNT 4.58 10^6/uL (4.00-5.40)
[2021-08-21 01:21] LABS: BLOOD UREA NITROGEN 14 MG/DL (7-18); CALCIUM LEVEL 9.2 MG/DL (8.5-10.1); CARBON DIOXIDE LEVEL 28 MEQ/L (21-32); CHLORIDE LEVEL 106 MEQ/L (98-107); CK-MB VALUE MASS < 1.0 NG/ML (<3.6); CPK CREATINE PHOSPHOKINASE 222 U/L (26-192); CREATININE FOR GFR 0.91 MG/DL (0.55-1.30); GLOMERULAR FILTRATION RATE > 60.0 (>58); GLUCOSE, FASTING 97 MG/DL (70-100); MB/CK RELATIVE INDEX 0.45 (< OR =4); POTASSIUM SERUM 4.9 MEQ/L (3.5-5.1); SODIUM LEVEL 139 MEQ/L (136-145)
[2021-08-21 03:15] VITALS: BP 112/75
[2021-08-21 17:46] LABS: MAGNESIUM LEVEL 1.8 MG/DL (1.7-2.2)
== END 2021-08-21 03:22 | disposition home or self-care (01) ==
LOC: M ED 00:10
DX: R07.9 Chest pain, unspecified (principal)

== ENCOUNTER → 2022-11-06 | Outpatient (CLI) | payer OTHER ==
[~2022-11-06] MED LIST changes: +MONT-5 PO; -SING10TA32 PO
== END ==
LOC: M WHC 15:24
PROVIDERS: ATTEND Obstetrics & Gynecology
DX: Z12.31 Encounter for screening mammogram for malignant neoplasm of breast (principal)

== ENCOUNTER 2023-04-28 08:58 | Emergency (ER) | payer OTHER ==
[~2023-04-28] VITALS: Ht 162.6 cm; Wt 82.1 kg
[~2023-04-28 08:58] MED LIST changes: +LORA-1041 PO; -LORA-674 PO
[2023-04-28] MEDS ORDERED: HYDR-3363 (09:12)
[2023-04-28] MEDS ORDERED: NS 500 ML IV ONE (09:30)
[2023-04-28 09:40] LABS: BASO % 1.1 % (0.0-1.0); EOS # 0.1 10^3/uL (0.0-0.5); EOS % 2.5 % (0.0-3.0); HEMATOCRIT 39.2 % (36.0-47.0); LYMPH # 1.4 10^3/uL (1.5-5.0); LYMPH % 37.7 % (24.0-44.0); MEAN CORPUSCULAR HGB CONC 33.2 g/dl (32.0-36.5); MEAN CORPUSCULAR VOLUME 87.3 fl (80.0-96.0); MONO # 0.2 10^3/uL (0.0-0.8); MONO % 6.6 % (2.0-8.0); NEUTROPHILS # 1.9 10^3/uL (1.5-8.5); NEUTROPHILS % 52.1 % (36.0-66.0); PLATELET COUNT, AUTOMATED 189 10^3/uL (150-450); RED BLOOD COUNT 4.49 10^6/uL (4.00-5.40); WHITE BLOOD COUNT 3.6 10^3/uL (4.0-10.0)
[2023-04-28 09:51] LABS: PROTHROMBIN TIME 12.9 SECONDS (12.5-14.5)
[2023-04-28 09:52] LABS: PARTIAL THROMBOPLASTIN TIME 25.4 SECONDS (24.8-34.2)
[2023-04-28 10:07] LABS: CK-MB VALUE MASS < 1.0 NG/ML (<3.6)
[2023-04-28 10:08] LABS: LIPASE 26 U/L (12-53)
[2023-04-28 10:10] LABS: ALBUMIN 3.6 G/DL (3.2-5.2); ALKALINE PHOSPHATASE 50 U/L (46-116); ALT/SGPT 23 U/L (7.0-40); AST/SGOT 16 U/L (<34); BILIRUBIN,DIRECT 0.1 MG/DL (<0.4); BILIRUBIN,TOTAL 0.4 MG/DL (0.3-1.2); BLOOD UREA NITROGEN 13 MG/DL (9-23); CALCIUM LEVEL 9.3 MG/DL (8.5-10.1); CARBON DIOXIDE LEVEL 30 MMOL/L (20-31); CHLORIDE LEVEL 104 MMOL/L (98-107); CPK CREATINE PHOSPHOKINASE 129 U/L (34-145); CREATININE FOR GFR 0.75 MG/DL (0.55-1.30); GLOMERULAR FILTRATION RATE > 60.0 (>58); GLUCOSE, FASTING 103 MG/DL (60-100); MB/CK RELATIVE INDEX 0.77 (< OR =4); POTASSIUM SERUM 4.2 MMOL/L (3.5-5.1); SODIUM LEVEL 141 MMOL/L (136-145); TOTAL PROTEIN 6.7 G/DL (5.7-8.2)
[2023-04-28 10:12] LABS: FREE T4 0.99 NG/DL (0.89-1.76); HCG, SERUM QUALITATIVE NEGATIVE (NEGATIVE); THYROID STIMULATING HORMONE 2.126 uIU/ML (0.55-4.78)
[2023-04-28 10:22] LABS: RSV AMPLIFICATION NEGATIVE (NEGATIVE)
[2023-04-28 11:11] LABS: CK-MB VALUE MASS < 1.0 NG/ML (<3.6)
[2023-04-28] MEDS ORDERED: ACETAMINOPHEN 325 MG TAB PO ONE (11:15)
[2023-04-28 11:24] LABS: CPK CREATINE PHOSPHOKINASE 134 U/L (34-145); MB/CK RELATIVE INDEX 0.74 (< OR =4)
[2023-04-28 11:43] VITALS: BP 114/58; TEMP 97.9; O2SAT 98
== END 2023-04-28 12:08 | disposition home or self-care (01) ==
LOC: M ED 08:58 → EDBD 08:58 → M ED 12:08
DX: R00.2 Palpitations (principal); E04.1 Nontoxic single thyroid nodule; I47.10 Supraventricular tachycardia, unspecified; Z79.899 Other long term (current) drug therapy

== ENCOUNTER 2023-06-07 14:35 | Emergency (ER) | payer OTHER ==
[~2023-06-07] VITALS: Ht 162.6 cm; Wt 87.3 kg
[~2023-06-07 14:35] MED LIST changes: +HYDR-3363
[2023-06-07 14:49] VITALS: TEMP 97.8
[2023-06-07] MEDS ORDERED: NITROGLYCERIN 0.4MG SUBL TABLET SL PRN (14:50)
[2023-06-07] MEDS ORDERED: SUCRALFATE SUSP 1GM/10ML UD PO ONE (14:50)
[2023-06-07 15:04] LABS: BASO % 0.8 % (0.0-1.0); EOS # 0.1 10^3/uL (0.0-0.5); EOS % 1.3 % (0.0-3.0); HEMATOCRIT 42.1 % (36.0-47.0); HEMOGLOBIN 14.2 g/dl (12.0-15.5); LYMPH # 1.5 10^3/uL (1.5-5.0); LYMPH % 28.4 % (24.0-44.0); MEAN CORPUSCULAR HEMOGLOBIN 29.2 pg (27.0-33.0); MEAN CORPUSCULAR HGB CONC 33.7 g/dl (32.0-36.5); MEAN CORPUSCULAR VOLUME 86.6 fl (80.0-96.0); MONO # 0.3 10^3/uL (0.0-0.8); MONO % 6.5 % (2.0-8.0); NEUTROPHILS # 3.3 10^3/uL (1.5-8.5); NEUTROPHILS % 62.8 % (36.0-66.0); PLATELET COUNT, AUTOMATED 200 10^3/uL (150-450); RED BLOOD COUNT 4.86 10^6/uL (4.00-5.40); WHITE BLOOD COUNT 5.3 10^3/uL (4.0-10.0)
[2023-06-07 15:28] LABS: CK-MB VALUE MASS < 1.0 NG/ML (<3.6)
[2023-06-07 15:29] LABS: LIPASE 30 U/L (12-53)
[2023-06-07 15:31] LABS: ALKALINE PHOSPHATASE 50 U/L (46-116); ALT/SGPT 30 U/L (7.0-40); AST/SGOT 26 U/L (<34); BILIRUBIN,DIRECT < 0.1 MG/DL (<0.4); BILIRUBIN,TOTAL 0.3 MG/DL (0.3-1.2); BLOOD UREA NITROGEN 14 MG/DL (9-23); CALCIUM LEVEL 9.3 MG/DL (8.5-10.1); CARBON DIOXIDE LEVEL 27 MMOL/L (20-31); CHLORIDE LEVEL 104 MMOL/L (98-107); CREATININE FOR GFR 0.76 MG/DL (0.55-1.30); GLOMERULAR FILTRATION RATE > 60.0 (>58); GLUCOSE, FASTING 85 MG/DL (60-100); POTASSIUM SERUM 4.2 MMOL/L (3.5-5.1); SODIUM LEVEL 141 MMOL/L (136-145); TOTAL PROTEIN 7.5 G/DL (5.7-8.2)
[2023-06-07 15:33] LABS: THYROID STIMULATING HORMONE 1.776 uIU/ML (0.55-4.78)
[2023-06-07 15:35] LABS: CPK CREATINE PHOSPHOKINASE 107 U/L (34-145); MB/CK RELATIVE INDEX 0.93 (< OR =4)
[2023-06-07] MEDS ORDERED: ISOVUE-370 76% 100ML VIAL As Ordered ONE (15:37)
[2023-06-07 15:45] LABS: INR 0.98; PROTHROMBIN TIME 12.7 SECONDS (12.5-14.5)
[2023-06-07 16:52] LABS: CK-MB VALUE MASS < 1.0 NG/ML (<3.6)
[2023-06-07 16:54] LABS: CPK CREATINE PHOSPHOKINASE 95 U/L (34-145); MB/CK RELATIVE INDEX 1.05 (< OR =4)
[2023-06-07 17:00] VITALS: BP 109/56; O2SAT 99
[2023-06-07] MEDS ORDERED: PROT1TAB2 PO (17:00)
[2023-06-07] MEDS ORDERED: SUCR1SS PO (17:00)
[2023-06-07 18:10] LABS: CHLAMYDIA DNA AMPLIFICATION NEGATIVE (NEGATIVE); GC DNA AMPLIFICATION NEGATIVE (NEGATIVE)
== END 2023-06-07 17:14 | disposition home or self-care (01) ==
LOC: M ED 14:35 → EDBD 14:35 → M ED 17:14
DX: R07.9 Chest pain, unspecified (principal)
CPT/HCPCS: 36415; 71045; 71275; 80048; 80076; 81001; 82550; 82553; 83690; 83880; 84443; 85025; 85610; 87661; 87810; 87850; 93005; 93041; 94760; 99285; Q9967

== ENCOUNTER 2023-08-18 15:59 | Emergency (ER) | payer OTHER ==
[~2023-08-18 15:59] MED LIST changes: +PROT1TAB2 PO; +SUCR1SS PO
[2023-08-18] MEDS ORDERED: ERGO500029 (16:43)
[2023-08-19] MEDS: FAMOTIDINE 20MG/2ML VIAL IVP ONE
[2023-08-19] MEDS: diphenhydrAMINE 50MG/ML VIAL IV ONE
[2023-08-19] MEDS: dexAMETHasone 20MG/5ML VIAL IV ONE
[2023-08-19 00:15] LABS: BASO # 0.1 10^3/uL (0.0-0.2); BASO % 0.9 % (0.0-1.0); EOS # 0.1 10^3/uL (0.0-0.5); EOS % 1.3 % (0.0-3.0); HEMOGLOBIN 14.4 g/dl (12.0-15.5); LYMPH # 2.4 10^3/uL (1.5-5.0); LYMPH % 42.5 % (24.0-44.0); MEAN CORPUSCULAR HEMOGLOBIN 28.8 pg (27.0-33.0); MEAN CORPUSCULAR HGB CONC 33.5 g/dl (32.0-36.5); MONO # 0.4 10^3/uL (0.0-0.8); MONO % 6.4 % (2.0-8.0); NEUTROPHILS # 2.7 10^3/uL (1.5-8.5); NEUTROPHILS % 48.7 % (36.0-66.0); PLATELET COUNT, AUTOMATED 213 10^3/uL (150-450); WHITE BLOOD COUNT 5.6 10^3/uL (4.0-10.0)
[2023-08-19 00:20] LABS: C REACTIVE PROTEIN QUANTITATIV < 0.40 MG/DL (<1.0)
[2023-08-19 00:28] LABS: PROCALCITONIN <0.04 ng/ml
[2023-08-19 00:44] LABS: ERYTHROCYTE SEDIMENTATION RATE 26 mm/hr (0-20)
[2023-08-19] MEDS ORDERED: ISOVUE-370 76% 100ML VIAL As Ordered ONE (01:00)
[2023-08-19 02:17] VITALS: BP 112/69; TEMP 97.6; O2SAT 98
== END 2023-08-19 02:21 | disposition home or self-care (01) ==
LOC: M ED 15:59
DX: R07.0 Pain in throat (principal); R21 Rash and other nonspecific skin eruption; E04.2 Nontoxic multinodular goiter; J45.909 Unspecified asthma, uncomplicated; F41.9 Anxiety disorder, unspecified
CPT/HCPCS: 70491; 80047; 83605; 84145; 84702; 85025; 85652; 86140; 87486; 87581; 87633; 87798; 87880; 96374; 96375; 99284; J1100; J1200; Q9967; S0028

== ENCOUNTER → 2023-09-10 | Outpatient (CLI) | payer OTHER ==
[~2023-09-10] MED LIST changes: +ERGO500029
== END ==
LOC: M CARPUL 07:33
PROVIDERS: ATTEND Physician Assistant
DX: R06.02 Shortness of breath (principal)

== ENCOUNTER 2024-01-19 15:23 | Emergency (ER) | payer OTHER ==
[~2024-01-19] VITALS: Ht 162.6 cm; Wt 84.1 kg
[2024-01-19] MEDS ORDERED: IBUP80TA (15:47)
[2024-01-19] MEDS ORDERED: TALT80IN7 (15:47)
[2024-01-19] MEDS ORDERED: PROP10TA56 (15:47)
[2024-01-19] MEDS ORDERED: NAPR220C14 PO (15:48)
[2024-01-19 16:14] VITALS: TEMP 97.7
[2024-01-19 17:04] LABS: BASO % 0.6 % (0.0-1.0); EOS # 0.1 10^3/uL (0.0-0.5); EOS % 1.3 % (0.0-3.0); HEMOGLOBIN 13.3 g/dl (12.0-15.5); LYMPH # 1.4 10^3/uL (1.5-5.0); LYMPH % 21.8 % (24.0-44.0); MEAN CORPUSCULAR HEMOGLOBIN 29.6 pg (27.0-33.0); MEAN CORPUSCULAR HGB CONC 34.1 g/dl (32.0-36.5); MEAN CORPUSCULAR VOLUME 86.7 fl (80.0-96.0); MONO # 0.3 10^3/uL (0.0-0.8); NEUTROPHILS # 4.5 10^3/uL (1.5-8.5); PLATELET COUNT, AUTOMATED 216 10^3/uL (150-450); WHITE BLOOD COUNT 6.4 10^3/uL (4.0-10.0)
[2024-01-19 17:31] LABS: BLOOD UREA NITROGEN 13 MG/DL (9-23); CALCIUM LEVEL 9.1 MG/DL (8.5-10.1); CARBON DIOXIDE LEVEL 29 MMOL/L (20-31); CHLORIDE LEVEL 107 MMOL/L (98-107); CK-MB VALUE MASS < 1.0 NG/ML (<3.6); CREATININE FOR GFR 0.82 MG/DL (0.55-1.30); GLOMERULAR FILTRATION RATE > 60.0 (>58); GLUCOSE, FASTING 95 MG/DL (60-100); POTASSIUM SERUM 4.3 MMOL/L (3.5-5.1); SODIUM LEVEL 139 MMOL/L (136-145)
[2024-01-19 17:33] LABS: THYROID STIMULATING HORMONE 1.627 uIU/ML (0.55-4.78)
[2024-01-19 17:34] LABS: FREE T4 1.17 NG/DL (0.89-1.76)
[2024-01-19 17:38] LABS: CPK CREATINE PHOSPHOKINASE 139 U/L (34-145); MB/CK RELATIVE INDEX 0.71 (< OR =4)
[2024-01-19 18:26] LABS: CK-MB VALUE MASS < 1.0 NG/ML (<3.6)
[2024-01-19 18:27] LABS: CPK CREATINE PHOSPHOKINASE 131 U/L (34-145); MB/CK RELATIVE INDEX 0.76 (< OR =4)
[2024-01-19 19:00] VITALS: BP 130/61; O2SAT 98
== END 2024-01-19 19:47 | disposition home or self-care (01) ==
LOC: EDBD 15:23 → M ED 15:23
DX: R07.9 Chest pain, unspecified (principal); R09.A2 Foreign body sensation, throat; J45.909 Unspecified asthma, uncomplicated; Z79.899 Other long term (current) drug therapy

== ENCOUNTER 2024-07-05 20:15 | Emergency (ER) | payer OTHER ==
[~2024-07-05] VITALS: Ht 162.6 cm; Wt 83.2 kg
[~2024-07-05 20:15] MED LIST changes: +IBUP80TA; +NAPR220C14 PO; +PROP10TA56; +TALT80IN7
[2024-07-05 21:56] LABS: BASO % 0.7 % (0.0-1.0); EOS # 0.1 10^3/uL (0.0-0.5); EOS % 1.1 % (0.0-3.0); HEMATOCRIT 40.8 % (36.0-47.0); HEMOGLOBIN 13.8 g/dl (12.0-15.5); LYMPH # 1.4 10^3/uL (1.5-5.0); LYMPH % 25.3 % (24.0-44.0); MEAN CORPUSCULAR HEMOGLOBIN 29.3 pg (27.0-33.0); MEAN CORPUSCULAR HGB CONC 33.8 g/dl (32.0-36.5); MEAN CORPUSCULAR VOLUME 86.6 fl (80.0-96.0); MONO # 0.3 10^3/uL (0.0-0.8); MONO % 4.8 % (2.0-8.0); NEUTROPHILS # 3.8 10^3/uL (1.5-8.5); NEUTROPHILS % 67.7 % (36.0-66.0); PLATELET COUNT, AUTOMATED 223 10^3/uL (150-450); RED BLOOD COUNT 4.71 10^6/uL (4.00-5.40); WHITE BLOOD COUNT 5.6 10^3/uL (4.0-10.0)
[2024-07-05 22:08] LABS: INR 0.91; PARTIAL THROMBOPLASTIN TIME 26.2 SECONDS (24.8-34.2); PROTHROMBIN TIME 12.5 SECONDS (12.5-14.5)
[2024-07-05 22:26] LABS: LIPASE 30 U/L (12-53)
[2024-07-05 22:29] LABS: ALBUMIN 3.9 G/DL (3.2-5.2); ALKALINE PHOSPHATASE 52 U/L (35-104); ALT/SGPT 23 U/L (7.0-40); AST/SGOT 21 U/L (<34); BILIRUBIN,DIRECT < 0.1 MG/DL (<0.4); BILIRUBIN,TOTAL 0.2 MG/DL (0.3-1.2); BLOOD UREA NITROGEN 17 MG/DL (9-23); CALCIUM LEVEL 9.7 MG/DL (8.5-10.1); CARBON DIOXIDE LEVEL 28 MMOL/L (20-31); CHLORIDE LEVEL 106 MMOL/L (98-107); CK-MB VALUE MASS < 1.0 NG/ML (<3.6); CREATININE FOR GFR 0.82 MG/DL (0.55-1.30); GLOMERULAR FILTRATION RATE > 60.0 (>58); GLUCOSE, FASTING 112 MG/DL (60-100); POTASSIUM SERUM 4.1 MMOL/L (3.5-5.1); SODIUM LEVEL 143 MMOL/L (136-145); TOTAL PROTEIN 7.9 G/DL (5.7-8.2)
[2024-07-05 22:30] LABS: CPK CREATINE PHOSPHOKINASE 176 U/L (34-145); MB/CK RELATIVE INDEX 0.56 (< OR =4)
[2024-07-05 23:08] LABS: HCG, SERUM QUALITATIVE NEGATIVE (NEGATIVE)
[2024-07-06] MEDS ORDERED: ACET-907 PO (00:13)
[2024-07-06] MEDS: ACETAMINOPHEN 325 MG TAB PO ONE (00:28)
[2024-07-06 01:51] VITALS: BP 117/76; TEMP 97.6; O2SAT 98
== END 2024-07-06 00:30 | disposition home or self-care (01) ==
LOC: EDBD 20:15 → M ED 20:15
DX: S46.012A Strain of muscle(s) and tendon(s) of the rotator cuff of left shoulder, initial encounter (principal); S20.212A Contusion of left front wall of thorax, initial encounter; Y92.410 Unspecified street and highway as the place of occurrence of the external cause; Y93.9 Activity, unspecified; Y99.9 Unspecified external cause status; V47.5XXA Car driver injured in collision with fixed or stationary object in traffic accident, initial encounter; Z79.1 Long term (current) use of non-steroidal anti-inflammatories (NSAID); Z79.899 Other long term (current) drug therapy

== ENCOUNTER → 2024-11-16 | Outpatient (CLI) | payer OTHER ==
[~2024-11-16] MED LIST changes: +ACET-907 PO
== END ==
LOC: M LAB 09:57 → M RAD 09:57
PROVIDERS: ATTEND Nurse Practitioner Adult Health
DX: M54.50 Low back pain, unspecified (principal)

== ENCOUNTER → 2025-04-06 | Outpatient (CLI) | payer OTHER ==
[~2025-04-06] MED LIST changes: -IBUP-1022; +IBUP600T42; +ISOVUE-370 76% 100 ML VIAL As Ordered ONE
== END ==
LOC: M RAD 16:31
PROVIDERS: ATTEND Nurse Practitioner Adult Health
DX: R10.84 Generalized abdominal pain (principal)
CPT/HCPCS: 74177; Q9967